=== PATIENT | male | born 1950 | race Caucasian/White ===

== ENCOUNTER 2024-01-17 11:05 | Day surgery (SDC) | payer MEDICARE, BC ==
[2024-01-15 14:26] VITALS: BMI 24.4
[2024-01-17] MEDS: LACTATED RINGERS 1,000 ML IV SCH (11:47)
[2024-01-17 12:03] LABS: Glucose,Whole Blood 55 mg/dL (70-110)
[2024-01-17] MEDS: DEXTROSE 50% SYRINGE 50 ML IVP ONE (12:04)
[2024-01-17 12:20] LABS: Glucose,Whole Blood 116 mg/dL (70-110)
[2024-01-17 12:22] VITALS: TEMP 97.2
[2024-01-17] MEDS ORDERED: PROPOFOL 10 MG/ML 20 ML VIAL IV ONE (12:22)
--- NOTE | 2024-01-17 12:39 | P.PCN ---
Date of Procedure: 01/17/24 Procedure(s) Performed: BRIEF HISTORY: Patient is a 73-year-old pleasant white male scheduled for an elective colonoscopy as a part of screening for colon cancer. PROCEDURE PERFORMED: Colonoscopy with snare polypectomy. PREOPERATIVE DIAGNOSIS: Screening for colon cancer. IV sedation per Anesthesia. PROCEDURE: After informed consent was obtained, the patient, was brought into the endoscopy unit. IV sedation was administered by Anesthesia under continuous monitoring. Digital rectal examination was normal. Initially the Olympus CF-160 flexible video colonoscope was then inserted in the rectum, gradually advanced into the cecum without any difficulty. Careful examination was performed as the scope was gradually being withdrawn. Ileocecal valve and the appendiceal orifice were visualized and appeared normal. Prep was excellent. Mucosa of the cecum, at a 6 mm polyp that was removed by cold snare polypectomy. Rest of the ascending colon, transverse colon, descending colon, sigmoid colon, and rectum appeared normal.rectum there was a 4 mm polyp removed by cold snare polypectomy. Retroflexion was performed in the rectum and no lesions were seen. The patient tolerated the procedure well. IMPRESSION: 6 mm cecal polyp status post cold snare polypectomy 4 mm proximal rectal polyp status post cold snare polypectomy . Rest of the colon appeared normal RECOMMENDATIONS: Findings of this examination were discussed with the patient As well as his family. He was advised to follow with the biopsy results. If the biopsy reveals adenoma he can have a repeat colonoscopy in 5 years..
[2024-01-17 13:08] VITALS: BP 162/91; PULSE 90; RESP 16
[2024-01-17 13:15] LABS: Glucose,Whole Blood 71 mg/dL (70-110)
== END 2024-01-17 13:38 | disposition home or self-care (01) ==
LOC: ORWHC2ENDO 11:05
PROVIDERS: ATTEND Internal Medicine Gastroenterology
DX: Z12.11 Encounter for screening for malignant neoplasm of colon (principal); D12.0 Benign neoplasm of cecum; K62.1 Rectal polyp; E11.9 Type 2 diabetes mellitus without complications; Z85.46 Personal history of malignant neoplasm of prostate; Z79.84 Long term (current) use of oral hypoglycemic drugs; Z79.899 Other long term (current) drug therapy
CPT/HCPCS: 88305; 45385; J2704

== ENCOUNTER 2024-11-01 01:07 | Inpatient (IN) | payer MEDICARE, BC ==
[2024-11-01 01:12] LABS: Glucose,Whole Blood 103 mg/dL (70-110)
--- NOTE | 2024-11-01 01:43 | CT ---
EXAM: CT Head Without Intravenous Contrast CLINICAL HISTORY: ITS.REASON CT Reason: Neuro Deficit, acute, persistent or progressing TECHNIQUE: Axial computed tomography images of the head/brain without intravenous contrast. CTDI is 49.1 mGy and DLP is 1256.4 mGy-cm. This CT exam was performed using one or more of the following dose reduction techniques: automated exposure control, adjustment of the mA and/or kV according to patient size, and/or use of iterative reconstruction technique. COMPARISON: No relevant prior studies available. FINDINGS: Brain: No hemorrhage, herniation, or mass effect. Chronic microvascular ischemic changes. 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 Ventricles: No hydrocephalus. Age related cerebral volume loss. Bones/joints: Unremarkable. Soft tissues: Unremarkable. Sinuses: No air fluid levels. Mastoid air cells: Clear. IMPRESSION: No acute hemorrhage, hydrocephalus, or mass effect.
[2024-11-01 02:12] LABS: Basophils % (A) 1 %; Eosinophils # (A) 0.1 k/uL (0-0.7); Eosinophils % (A) 1 %; HCT 28.7 % (39.0-53.0); HGB 9.7 gm/dL (13.0-17.5); Lymphocytes # (A) 0.9 k/uL (1.0-4.8); Lymphocytes % (A) 19 %; MCHC 33.7 g/dL (31.0-37.0); Macrocytosis Slight; Mean Platelet Volume 8.5; Monocytes # (A) 0.4 k/uL (0-1.0); Monocytes % (A) 9 %; Neutrophils # (A) 3.2 k/uL (1.3-7.7); Neutrophils % (A) 68 %; Platelet Count 185 k/uL (150-450); RBC 2.76 m/uL (4.30-5.90); WBC 4.7 k/uL (3.8-10.6)
[2024-11-01 02:38] LABS: ALT 24 U/L (4-49); African American GFR (CKD) 55 (>60 ml/min/1.73 sqM); Albumin 2.2 g/dL (3.5-5.0); Anion Gap 6 mmol/L; Blood Urea Nitrogen 44 mg/dL (9-20); Carbon Dioxide 25 mmol/L (22-30); Chloride 103 mmol/L (98-107); Glucose 104 mg/dL (74-99); Non-African American GFR(CKD) 48 (>60 ml/min/1.73 sqM); Sodium 134 mmol/L (137-145); Total Bilirubin 0.8 mg/dL (0.2-1.3); Total Protein 6.1 g/dL (6.3-8.2)
[2024-11-01 02:46] LABS: NT-Pro-B-Type Natriuretic Pept 3410 pg/mL
[2024-11-01 02:52] LABS: AST 78 U/L (17-59); Alkaline Phosphatase 167 U/L (38-126); Magnesium 1.8 mg/dL (1.6-2.3); Potassium 4.5 mmol/L (3.5-5.1)
[2024-11-01 03:03] LABS: Amorphous Sediment,Urine Rare /hpf; Appearance,Urine Cloudy (Clear); Bacteria,Urine Moderate /hpf; Bilirubin,Urine Negative (Negative); Blood,Urine Large (Negative); Color,Urine Yellow; Glucose,Urine (UA) Negative (Negative); Hyaline Casts,Urine 48 /lpf (0-2); Ketones,Urine Negative (Negative); Leukocyte Esterase,Urine Moderate (Negative); Mucus,Urine Occasional /hpf; Nitrite,Urine Negative (Negative); Protein,Urine 1+ (Negative); RBC,Urine >182 /hpf (0-5); Specific Gravity,Urine 1.018 (1.001-1.035); Urobilinogen,Urine <2.0 mg/dL (<2.0); WBC,Urine 9 /hpf (0-5)
[2024-11-01 03:08] LABS: INR 1.4 (<1.2); Partial Thromboplastin Time 31.4 sec (22.0-30.0); Prothrombin Time 14.4 sec (10.0-12.5)
--- NOTE | 2024-11-01 03:19 | XR ---
EXAM: XR Chest, 1 View CLINICAL HISTORY: ITS.REASON XR Reason: Weakness TECHNIQUE: Frontal view of the chest. COMPARISON: No relevant prior studies available. IMPRESSION: Moderate vascular congestion
[2024-11-01] MEDS ORDERED: NALOXONE 0.4 MG/ML 1 ML VIAL IV PRN (04:23)
--- NOTE | 2024-11-01 04:23 | ED ---
General Adult HPI - General Chief complaint: Neuro Symptoms/Deficit Stated complaint: Neuro Symptoms Time Seen by Provider: 11/01/24 01:10 Source: EMS Mode of arrival: EMS - History of Present Illness Initial comments: 74-year-old male who presents to the emergency department from [facility]. They called EMS to transport the patient to the hospital as he has had a change in his mental status. Patient appears to be more fatigued with some slurred speech. They state he was his normal self at 8 PM. EMS present and state that they thought that one of the patient's pupils were smaller than the other therefore they were concerned for stroke. Patient does not have any lateralizing weakness. No weakness in the upper extremities. Does have bilateral weakness which is equal in the lower extremities. Patient does not have a history of stroke. Does not take any blood thinners. He denies any headache or visual changes. He does admit to extreme fatigue with poor appetite and states he has not eaten anything in the past couple days. Patient has noticeable swelling to the bilateral upper and lower extremities. He states that this is baseline for him. He denies any fevers. No chest pain or shortness of breath. Patient is alert and oriented x 4 upon arrival. No other alleviating, precipitating or modifying factors - Related Data Home Medications Medication Instructions Recorded Confirmed Amoxic-Pot Clav 500-125 mg 1 tab PO Q12HR 01/15/24 01/17/24 [Augmentin 500-125 mg] Pantoprazole [Protonix] 40 mg PO DAILY 01/15/24 01/17/24 Tamsulosin [Flomax] 0.4 mg PO DAILY 01/15/24 01/17/24 glipiZIDE 10 mg PO BID 01/15/24 01/17/24 lisinopriL 20 mg PO DAILY 01/15/24 01/17/24 sitaGLIPtin [Januvia] 100 mg PO DAILY 01/15/24 01/17/24 traZODone HCL [Desyrel] 50 mg PO HS 01/15/24 01/17/24 Allergies Allergy/AdvReac Type Severity Reaction Status Date / Time No Known Allergies Allergy Verified 01/17/24 11:43 Review of Systems ROS Statement: Those systems with pertinent positive or pertinent negative responses have been documented in the HPI. ROS Other: All systems not noted in ROS Statement are negative. Past Medical History Past Medical History: Cancer, Diabetes Mellitus Additional Past Medical History / Comment(s): prostate cancer History of Any Multi-Drug Resistant Organisms: None Reported Additional Past Surgical History / Comment(s): oral surgery for implant Past Anesthesia/Blood Transfusion Reactions: No Reported Reaction Additional Past Anesthesia/Blood Transfusion Reaction / Comment(s): no blood transfusion Past Psychological History: No Psychological Hx Reported Smoking Status: Never smoker Past Alcohol Use History: None Reported Past Drug Use History: None Reported Course Vital Signs 11/01/24 11/01/24 11/01/24 01:09 02:34 03:05 Pulse Rate 80 76 78 Respiratory 20 16 18 Rate Blood Pressure 89/65 85/51 98/63 O2 Sat by Pulse 94 L 94 L 98 Oximetry Medical Decision Making - Medical Decision Making Was pt. sent in by a medical professional or institution (, PA, HYDROELECTRIC PLANT ELECTRICIAN, urgent care, hospital, or snf...) When possible be specific @ -[No] Did you speak to anyone other than the patient for history (EMS, parent, family, police, friend...)? What history was obtained from this source @ -[No] Did you review nursing and triage notes (agree or disagree)? Why? @ -[I reviewed and agree with nursing and triage notes] Were old charts reviewed (outside hosp., previous admission, EMS record, old EKG, old radiological studies, urgent care reports/EKG's, snf records)? Report findings @ -[No old charts were reviewed] Differential Diagnosis (chest pain, altered mental status, abdominal pain women, abdominal pain men, vaginal bleeding, weakness, fever, dyspnea, syncope, headache, dizziness, GI bleed, back pain, seizure, CVA, palpatations, mental health, musculoskeletal)? @ -[not applicable] EKG interpreted by me (3pts min.). @ -Yes and demonstrates sinus rhythm with a rate of 70. HI interval 224. QRS 77. QTc of 370. No acute ST segment elevations or depressions X-rays interpreted by me (1pt min.). @ -[None done] CT interpreted by me (1pt min.). @ -[None done] U/S interpreted by me (1pt. min.). @ -[None done] What testing was considered but not performed or refused? (CT, X-rays, U/S, labs)? Why? @ -[None] What meds were considered but not given or refused? Why? @ -[None] Did you discuss the management of the patient with other professionals (professionals i.e. , PA, HYDROELECTRIC PLANT ELECTRICIAN, lab, RT, psych nurse, social welfare research worker, corsetier, teacher, admissions officer, residential case manager)? Give summary @ -[No] Was smoking cessation discussed for >3mins.? @ -[No] Was critical care preformed (if so, how long)? @ -[No] Were there social determinants of health that impacted care today? How? (Homelessness, low income, unemployed, alcoholism, drug addiction, transport ation, low edu. Level, literacy, decrease access to med. care, long-term, rehab)? @ -[No] Was there de-escalation of care discussed even if they declined (Discuss DNR or withdrawal of care, Hospice)? DNR status @ -[No] What co-morbidities impacted this encounter? (DM, HTN, Smoking, COPD, CAD, Cancer, CVA, ARF, Chemo, Hep., AIDS, mental health diagnosis, sleep apnea, morbid obesity)? @ -[None] Was patient admitted / discharged? Hospital course, mention meds given and route, prescriptions, significant lab abnormalities, going to OR and other pertinent info. @ -[hospital course] Undiagnosed new problem with uncertain prognosis? @ -[No] Drug Therapy requiring intensive monitoring for toxicity (Heparin, Nitro, Insulin, Cardizem)? @ -[No] Were any procedures done? @ -[No] Diagnosis/symptom? @ -[default] Acute, or Chronic, or Acute on Chronic? @ -[default] Uncomplicated (without systemic symptoms) or Complicated (systemic symptoms)? @ -[default] Side effects of treatment? @ -[No] Exacerbation, Progression, or Severe Exacerbation? @ -[No] Poses a threat to life or bodily function? How? (Chest pain, [place], [place], pneumonia, PE, COPD, DKA, ARF, appy, cholecystitis, CVA, Diverticulitis, Homicidal, Suicidal, threat to staff... and all critical care pts) @ -[No] - Lab Data Result diagrams: 11/01/24 01:18 11/01/24 01:18 Lab Results 11/01/24 11/01/24 11/01/24 Range/Units 01:11 01:18 01:18 WBC 4.7 (3.8-10.6) k/uL RBC 2.76 L (4.30-5.90) m/uL Hgb 9.7 L (13.0-17.5) gm/dL Hct 28.7 L (39.0-53.0) % MCV 104.0 H (80.0-100.0) fL MCH 35.0 (25.0-35.0) pg MCHC 33.7 (31.0-37.0) g/dL RDW 13.0 (11.5-15.5) % Plt Count 185 (150-450) k/uL MPV 8.5 Neutrophils % 68 % Lymphocytes % 19 % Monocytes % 9 % Eosinophils % 1 % Basophils % 1 % Neutrophils # 3.2 (1.3-7.7) k/uL Lymphocytes # 0.9 L (1.0-4.8) k/uL Monocytes # 0.4 (0-1.0) k/uL Eosinophils # 0.1 (0-0.7) k/uL Basophils # 0.0 (0-0.2) k/uL Macrocytosis Slight PT 14.4 H (10.0-12.5) sec INR 1.4 H (<1.2) APTT 31.4 H (22.0-30.0) sec Sodium (137-145) mmol/L Potassium (3.5-5.1) mmol/L Chloride (98-107) mmol/L Carbon Dioxide (22-30) mmol/L Anion Gap mmol/L BUN (9-20) mg/dL Creatinine (0.66-1.25) mg/dL Est GFR (CKD-EPI)AfAm (>60 ml/min/1.73 sqM) Est GFR (CKD-EPI)NonAf (>60 ml/min/1.73 sqM) Glucose (74-99) mg/dL POC Glucose (mg/dL) 103 (70-110) mg/dL POC Glu Block Hand ID Tylor Lambert Plasma Lactic Acid Bo (0.7-2.0) mmol/L Calcium (8.4-10.2) mg/dL Magnesium (1.6-2.3) mg/dL Total Bilirubin (0.2-1.3) mg/dL AST (17-59) U/L ALT (4-49) U/L Alkaline Phosphatase (38-126) U/L Troponin I (0.000-0.034) ng/mL NT-Pro-B Natriuret Pep pg/mL Total Protein (6.3-8.2) g/dL Albumin (3.5-5.0) g/dL Urine Color Urine Appearance (Clear) Urine pH (5.0-8.0) Ur Specific [place] (1.001-1.035) Urine Protein (Negative) Urine Glucose (UA) (Negative) Urine Ketones (Negative) Urine Blood (Negative) Urine Nitrite (Negative) Urine Bilirubin (Negative) Urine Urobilinogen (<2.0) mg/dL Ur Leukocyte Esterase (Negative) Urine RBC (0-5) /hpf Urine WBC (0-5) /hpf Amorphous Sediment (None) /hpf Urine Bacteria (None) /hpf Hyaline Casts (0-2) /lpf Urine Mucus (None) /hpf 11/01/24 11/01/24 11/01/24 Range/Units 01:18 01:18 01:18 WBC (3.8-10.6) k/uL RBC (4.30-5.90) m/uL Hgb (13.0-17.5) gm/dL Hct (39.0-53.0) % MCV (80.0-100.0) fL MCH (25.0-35.0) pg MCHC (31.0-37.0) g/dL RDW (11.5-15.5) % Plt Count (150-450) k/uL MPV Neutrophils % % Lymphocytes % % Monocytes % % Eosinophils % % Basophils % % Neutrophils # (1.3-7.7) k/uL Lymphocytes # (1.0-4.8) k/uL Monocytes # (0-1.0) k/uL Eosinophils # (0-0.7) k/uL Basophils # (0-0.2) k/uL Macrocytosis PT (10.0-12.5) sec INR (<1.2) APTT (22.0-30.0) sec Sodium 134 L (137-145) mmol/L Potassium 4.5 (3.5-5.1) mmol/L Chloride 103 (98-107) mmol/L Carbon Dioxide 25 (22-30) mmol/L Anion Gap 6 mmol/L BUN 44 H (9-20) mg/dL Creatinine 1.43 H (0.66-1.25) mg/dL Est GFR (CKD-EPI)AfAm 55 (>60 ml/min/1.73 sqM) Est GFR (CKD-EPI)NonAf 48 (>60 ml/min/1.73 sqM) Glucose 104 H (74-99) mg/dL POC Glucose (mg/dL) (70-110) mg/dL POC Glu Block Hand ID Plasma Lactic Acid Bo 2.3 H* (0.7-2.0) mmol/L Calcium 8.0 L (8.4-10.2) mg/dL Magnesium 1.8 (1.6-2.3) mg/dL Total Bilirubin 0.8 (0.2-1.3) mg/dL AST 78 H (17-59) U/L ALT 24 (4-49) U/L Alkaline Phosphatase 167 H (38-126) U/L Troponin I 0.086 H* (0.000-0.034) ng/mL NT-Pro-B Natriuret Pep 3410 pg/mL Total Protein 6.1 L (6.3-8.2) g/dL Albumin 2.2 L (3.5-5.0) g/dL Urine Color Urine Appearance (Clear) Urine pH (5.0-8.0) Ur Specific [place] (1.001-1.035) Urine Protein (Negative) Urine Glucose (UA) (Negative) Urine Ketones (Negative) Urine Blood (Negative) Urine Nitrite (Negative) Urine Bilirubin (Negative) Urine Urobilinogen (<2.0) mg/dL Ur Leukocyte Esterase (Negative) Urine RBC (0-5) /hpf Urine WBC (0-5) /hpf Amorphous Sediment (None) /hpf Urine Bacteria (None) /hpf Hyaline Casts (0-2) /lpf Urine Mucus (None) /hpf 11/01/24 Range/Units 01:37 WBC (3.8-10.6) k/uL RBC (4.30-5.90) m/uL Hgb (13.0-17.5) gm/dL Hct (39.0-53.0) % MCV (80.0-100.0) fL MCH (25.0-35.0) pg MCHC (31.0-37.0) g/dL RDW (11.5-15.5) % Plt Count (150-450) k/uL MPV Neutrophils % % Lymphocytes % % Monocytes % % Eosinophils % % Basophils % % Neutrophils # (1.3-7.7) k/uL Lymphocytes # (1.0-4.8) k/uL Monocytes # (0-1.0) k/uL Eosinophils # (0-0.7) k/uL Basophils # (0-0.2) k/uL Macrocytosis PT (10.0-12.5) sec INR (<1.2) APTT (22.0-30.0) sec Sodium (137-145) mmol/L Potassium (3.5-5.1) mmol/L Chloride (98-107) mmol/L Carbon Dioxide (22-30) mmol/L Anion Gap mmol/L BUN (9-20) mg/dL Creatinine (0.66-1.25) mg/dL Est GFR (CKD-EPI)AfAm (>60 ml/min/1.73 sqM) Est GFR (CKD-EPI)NonAf (>60 ml/min/1.73 sqM) Glucose (74-99) mg/dL POC Glucose (mg/dL) (70-110) mg/dL POC Glu Block Hand ID Plasma Lactic Acid Bo (0.7-2.0) mmol/L Calcium (8.4-10.2) mg/dL Magnesium (1.6-2.3) mg/dL Total Bilirubin (0.2-1.3) mg/dL AST (17-59) U/L ALT (4-49) U/L Alkaline Phosphatase (38-126) U/L Troponin I (0.000-0.034) ng/mL NT-Pro-B Natriuret Pep pg/mL Total Protein (6.3-8.2) g/dL Albumin (3.5-5.0) g/dL Urine Color Yellow Urine Appearance Cloudy (Clear) Urine pH 5.0 (5.0-8.0) Ur Specific [place] 1.018 (1.001-1.035) Urine Protein 1+ H (Negative) Urine Glucose (UA) Negative (Negative) Urine Ketones Negative (Negative) Urine Blood Large H (Negative) Urine Nitrite Negative (Negative) Urine Bilirubin Negative (Negative) Urine Urobilinogen <2.0 (<2.0) mg/dL Ur Leukocyte Esterase Moderate H (Negative) Urine RBC >182 H (0-5) /hpf Urine WBC 9 H (0-5) /hpf Amorphous Sediment Rare H (None) /hpf Urine Bacteria Moderate H (None) /hpf Hyaline Casts 48 H (0-2) /lpf Urine Mucus Occasional H (None) /hpf Disposition Clinical Impression: Acute encephalopathy, Anasarca, Abnormal urinalysis Disposition: ADMITTED IP TO THIS [facility] Condition: Stable Is patient prescribed a controlled substance at d/c from ED?: No Referrals: Damian Griffith MD [Primary Care Provider] - 1-2 days Time of Disposition: 04:23 Decision to Admit Reason: Admit from EC Decision Date: 11/01/24 Decision Time: 04:23
[2024-11-01] MEDS: cefTRIAXone IN SWFI 1,000 MG/10 ML SYRINGE IVP STA (04:42)
[2024-11-01] MEDS ORDERED: DEXTROSE 50% SYRINGE 50 ML IVP PRN ×2 (06:06)
[2024-11-01 06:13] LABS: Glucose,Whole Blood 116 mg/dL (70-110)
[2024-11-01] MEDS: INSULIN ASPART (NovoLOG) 100 UNIT/ML VIAL SQ SCH (06:25)
[2024-11-01] MEDS: FUROSEMIDE 10 MG/ML 4 ML VIAL IV STA (06:30)
[2024-11-01] MEDS: ASPIRIN 81 MG PO SCH (09:36)
--- NOTE | 2024-11-01 10:19 | P.CRDCN ---
History of Present Illness History of present illness: HISTORY OF PRESENT ILLNESS: This is a 74-year-old male with a past medical history significant for hypertension, hyperlipidemia, and diabetes. Patient does not follow with a lead android developer. We have been asked to see the patient in consultation for congestive heart failure. Patient examined at the bedside. Patient is somewhat confused at the time of examination. There is no family to provide any additional history. According to ER records he was brought to the hospital from [facility] secondary to strokelike symptoms. The patient currently denies any chest pain or pressure. He denies any shortness of breath. Blood pressures have been soft with a systolic in the [id number]. DIAGNOSTICS: - EKG reveals sinus mechanism with poor R wave progression. Low voltage QRS. No signs of acute ischemia.. - Chest xray moderate vascular congestion - CT of the brain: Negative for acute hemorrhage, hydrocephalus, or mass effect - Laboratory data: WBCs 4.7. Hemoglobin 9.7. Platelet count 185. INR 1.4. Sodium 134. Potassium 4.5. BUN 44. Creatinine 1.43. Troponin 0.086. 0.109. proBNP 3410. - Current home cardiac medications include Lasix 20 mg twice a day, lisinopril 10 mg daily, simvastatin 20 mg at night. - No previous echocardiogram, stress test, or cardiac catheterization available in EMR for review REVIEW OF SYSTEMS: At the time of my exam: CONSTITUTIONAL: Denies fever or chills. HEENT: Denies blurred vision, vision changes, or eye pain. Denies hemoptysis CARDIOVASCULAR: Denies chest pain. Denies orthopnea. Denies PND. Denies palpitations RESPIRATORY: Denies shortness of breath. GASTROINTESTINAL: Denies abdominal pain. Denies nausea or vomiting. HEMATOLOGIC: Denies bleeding disorders. GENITOURINARY: Denies any blood in urine. SKIN: Denies pruitis. Denies rash. PHYSICAL EXAM: VITAL SIGNS: Reviewed. GENERAL: Well-developed in no acute distress. HEENT: Head is normocephalic. Pupils are equal, round. Sclerae anicteric. Mucous membranes of the mouth are moist. Neck supple. No JVD or thyromegaly LUNGS: Respirations even and unlabored. Lungs essentially clear to auscultation bilaterally. HEART: Regular rate and rhythm. S1 and S2 heard. ABDOMEN: Soft. Nondistended. Nontender. EXTREMITIES: Normal range of motion. No clubbing or cyanosis. Peripheral pulses intact. 1+ bilateral lower extremity edema NEUROLOGIC: Awake and alert. ASSESSMENT: Altered mental status Urinary tract infection Borderline hypotension Abnormal troponins, likely type II ID secondary to infectious process Chronic heart failure, type unknown, echo pending Acute kidney injury, baseline unknown Hypertension Hyperlipidemia Diabetes PLAN: An acute coronary event has been ruled out Obtain 2D echo to assess cardiac structure and function Resume home cardiac medications Hold Lasix and Lisinopril due to GIOVANY and hypotension Monitor kidney function Continue to monitor blood pressure Further recommendations pending patient course Nurse practitioner note has been reviewed by physician. Signing provider agrees with the documented findings, assessment, and plan of care documented by BOARD CATCHER as a scribe. Past Medical History Past Medical History: Cancer, Diabetes Mellitus Additional Past Medical History / Comment(s): prostate cancer History of Any Multi-Drug Resistant Organisms: None Reported Additional Past Surgical History / Comment(s): oral surgery for implant Past Anesthesia/Blood Transfusion Reactions: No Reported Reaction Additional Past Anesthesia/Blood Transfusion Reaction / Comment(s): no blood transfusion Past Psychological History: No Psychological Hx Reported Smoking Status: Former smoker Past Alcohol Use History: None Reported Past Drug Use History: None Reported Medications and Allergies Home Medications Medication Instructions Recorded Confirmed Type Pantoprazole [Protonix] 40 mg PO DAILY 01/15/24 11/01/24 History Tamsulosin [Flomax] 0.4 mg PO DAILY 01/15/24 11/01/24 History traZODone HCL [Desyrel] 50 mg PO HS 01/15/24 11/01/24 History Acetaminophen [Tylenol] 650 mg PO Q4H PRN MDD 3gm 11/01/24 11/01/24 History Escitalopram [Lexapro] 10 mg PO DAILY 11/01/24 11/01/24 History Furosemide [Lasix] 20 mg PO BID 11/01/24 11/01/24 History Gabapentin 300 mg PO HS 11/01/24 11/01/24 History Magnesium Glycinate 100mg 200 mg PO BID 11/01/24 11/01/24 History Simvastatin [Zocor] 20 mg PO HS 11/01/24 11/01/24 History lisinopriL [Zestril] 10 mg PO DAILY 11/01/24 11/01/24 History metFORMIN HCL 500 mg PO BID 11/01/24 11/01/24 History Allergies Allergy/AdvReac Type Severity Reaction Status Date / Time No Known Allergies Allergy Verified 01/17/24 11:43 Physical Exam Vitals: Vital Signs Temp Pulse Pulse Resp BP BP Pulse Ox 11/01/24 09:26 97.4 F L 80 18 97/58 95 11/01/24 05:20 98.7 F 82 18 132/89 97 11/01/24 04:45 74 18 104/62 97 11/01/24 03:05 78 18 98/63 98 11/01/24 02:34 76 16 85/51 94 L 11/01/24 01:09 80 20 89/65 94 L Intake and Output 10/31/24 11/01/24 11/01/24 22:59 06:59 14:59 Output Total 750 Balance -750 Output: Urine 750 Uretheral ([place]) 750 Other: Voiding Method Indwelling Catheter Indwelling Catheter Weight 92.533 kg Results 11/01/24 01:18 11/01/24 01:18 Cardiac Enzymes 11/01/24 11/01/24 11/01/24 Range/Units 01:18 01:18 05:59 AST 78 H (17-59) U/L Troponin I 0.086 H* 0.109 H* (0.000-0.034) ng/mL Coagulation 11/01/24 Range/Units 01:18 PT 14.4 H (10.0-12.5) sec APTT 31.4 H (22.0-30.0) sec CBC 11/01/24 Range/Units 01:18 WBC 4.7 (3.8-10.6) k/uL RBC 2.76 L (4.30-5.90) m/uL Hgb 9.7 L (13.0-17.5) gm/dL Hct 28.7 L (39.0-53.0) % Plt Count 185 (150-450) k/uL Comprehensive Metabolic Panel 11/01/24 Range/Units 01:18 Sodium 134 L (137-145) mmol/L Potassium 4.5 (3.5-5.1) mmol/L Chloride 103 (98-107) mmol/L Carbon Dioxide 25 (22-30) mmol/L BUN 44 H (9-20) mg/dL Creatinine 1.43 H (0.66-1.25) mg/dL Glucose 104 H (74-99) mg/dL Calcium 8.0 L (8.4-10.2) mg/dL AST 78 H (17-59) U/L ALT 24 (4-49) U/L Alkaline Phosphatase 167 H (38-126) U/L Total Protein 6.1 L (6.3-8.2) g/dL Albumin 2.2 L (3.5-5.0) g/dL Current Medications Generic Name Dose Route Start Last Admin Trade Name Freq PRN Reason Stop Dose Admin Aspirin 81 mg 11/01/24 09:00 11/01/24 09:36 Aspirin 81 Mg PO 81 mg DAILY MAYA Administration Atorvastatin Calcium 40 mg 11/01/24 21:00 Atorvastatin 40 Mg Tab PO HS MAYA Dextrose/Water 25 ml 11/01/24 06:06 Dextrose 50% Syringe 50 Ml IVP PER PROTOCOL PRN Hypoglycemia Protocol Dextrose/Water 50 ml 11/01/24 06:06 Dextrose 50% Syringe 50 Ml IVP PER PROTOCOL PRN Hypoglycemia Protocol Insulin Aspart 0 unit 11/01/24 07:30 11/01/24 06:25 Insulin Aspart (Novolog) 100 Unit/Ml Vial SQ Not Given ACHS MAYA Protocol Naloxone HCl 0.2 mg 11/01/24 04:23 Naloxone 0.4 Mg/Ml 1 Ml Vial IV Q2M PRN Opioid Reversal Intake and Output 10/31/24 11/01/24 11/01/24 22:59 06:59 14:59 Output Total 750 Balance -750 Output: Urine 750 Uretheral ([place]) 750 Other: Voiding Method Indwelling Catheter Indwelling Catheter Weight 92.533 kg 11/01/24 01:18 11/01/24 01:18
[2024-11-01 11:36] LABS: Glucose,Whole Blood 131 mg/dL (70-110)
[2024-11-01] MEDS ORDERED: ACETAMINOPHEN TAB 325 MG TAB PO PRN (13:45)
--- NOTE | 2024-11-01 14:25 | P.CNPUL ---
History of Present Illness Consult date: 11/01/24 Requesting physician: Jessica Garcia Reason for consult: dyspnea, hypoxemia, other Chief complaint: Mental status changes, shortness of breath. History of present illness: Pulmonary consult dated November 01, 2024. 74-year-old male who is seen today in room 373. We were consulted for shortness of breath. The patient presented to the emergency department, on November 01, at 1:00 in the morning, with neurologic complaints. He came in from one of the local nursing homes. The patient himself is not a particularly good historian and most of the history is obtained from the medical record. In addition to mental status changes, the patient apparently complained of some shortness of breath. He apparently was evaluated for possible CVA as well. Currently, the patient's stable from the pulmonary standpoint. His room air saturations ranged from 95% up to 97%. He appears in no acute distress. History includes prostate cancer, diabetes mellitus, hypertension, and gastroesophageal reflux disease. Laboratory data includes a white count 4.7, hemoglobin 9.7, hematocrit 28.7, and a platelet count of 185,000. PT 14.4, INR 1.4, PTT 31.4, sodium 134, potassium 4.5, chlorides 103, CO2 25, BUN 44, and creatinine 1.43. Glucose is 104. AST of 78. Troponin 0.105. N-terminal proBNP 3410. Procalcitonin level was 0.29. Urine shows 1+ protein, large amount of blood, moderate positive leukocyte esterase, rater than 182 RBCs, 9 WBCs, and moderate urine bacteria. The patient is currently on Rocephin. Brain CT shows nothing acute. Chest x-ray is consistent with fluid overload Review of Systems REVIEW OF SYSTEMS: CONSTITUTIONAL: [Negative.] NEUROLOGIC: Questionable mental status changes, and strokelike symptoms. HEENT: [ Negative.] CARDIAC: [Negative.] PULMONARY: Shortness of breath. GI: [Negative.] : [Negative.] RHEUMATOLOGIC: [ Negative.] IMMUNOLOGIC: [ Negative.] ENDOCRINE: [Negative. ] DERMATOLOGIC: [Negative.] Past Medical History Past Medical History: Cancer, Diabetes Mellitus Additional Past Medical History / Comment(s): prostate cancer History of Any Multi-Drug Resistant Organisms: None Reported Additional Past Surgical History / Comment(s): oral surgery for implant Past Anesthesia/Blood Transfusion Reactions: No Reported Reaction Additional Past Anesthesia/Blood Transfusion Reaction / Comment(s): no blood transfusion Past Psychological History: No Psychological Hx Reported Smoking Status: Former smoker Past Alcohol Use History: None Reported Past Drug Use History: None Reported Medications and Allergies Home Medications Medication Instructions Recorded Confirmed Type Pantoprazole [Protonix] 40 mg PO DAILY 01/15/24 11/01/24 History Tamsulosin [Flomax] 0.4 mg PO DAILY 01/15/24 11/01/24 History traZODone HCL [Desyrel] 50 mg PO HS 01/15/24 11/01/24 History Acetaminophen [Tylenol] 650 mg PO Q4H PRN MDD 3gm 11/01/24 11/01/24 History Escitalopram [Lexapro] 10 mg PO DAILY 11/01/24 11/01/24 History Furosemide [Lasix] 20 mg PO BID 11/01/24 11/01/24 History Gabapentin 300 mg PO HS 11/01/24 11/01/24 History Magnesium Glycinate 100mg 200 mg PO BID 11/01/24 11/01/24 History Simvastatin [Zocor] 20 mg PO HS 11/01/24 11/01/24 History lisinopriL [Zestril] 10 mg PO DAILY 11/01/24 11/01/24 History metFORMIN HCL 500 mg PO BID 11/01/24 11/01/24 History Allergies Allergy/AdvReac Type Severity Reaction Status Date / Time No Known Allergies Allergy Verified 01/17/24 11:43 Physical Exam Osteopathic Statement: *. No significant issues noted on an osteopathic structural exam other than those noted in the History and Physical/Consult. Vitals: Vital Signs Temp Pulse Pulse Resp BP BP Pulse Ox 11/01/24 11:20 96.8 F L 81 16 120/71 95 11/01/24 11:07 97.7 F 79 16 109/70 97 11/01/24 09:26 97.4 F L 80 18 97/58 95 11/01/24 05:20 98.7 F 82 18 132/89 97 11/01/24 04:45 74 18 104/62 97 11/01/24 03:05 78 18 98/63 98 11/01/24 02:34 76 16 85/51 94 L 11/01/24 01:09 80 20 89/65 94 L Intake and Output 10/31/24 11/01/24 11/01/24 22:59 06:59 14:59 Output Total 1075 Balance -1075 Output: Urine 1075 Uretheral (Nunn) 1075 Other: Voiding Method Indwelling Catheter Indwelling Catheter Weight 92.533 kg No acute distress, oriented 3. Very poor historian. No respiratory distress. Currently on room air. HEENT examination is grossly unremarkable. Mucous membranes are moist. No oral lesions. Neck supple. Full range of motion. No adenopathy thyromegaly or neck vein distention. Cardiovascular examination reveals regular rhythm rate. S1-S2 normal. No S3 or S4. No discernible murmur noted. Lungs reveal scattered crackles. Breath sounds equal. No rhonchi. No wheezes. Abdomen soft bowel sounds are heard. No masses or tenderness. Extremities are intact. No cyanosis or clubbing. Mild lower extremity edema. Skin is without rash or lesion. Neurologic examination is brief but nonfocal. Results - Laboratory Findings CBC and BMP: 11/01/24 01:18 11/01/24 01:18 PT/INR, D-dimer PT 14.4 sec (10.0-12.5) H 11/01/24 01:18 INR 1.4 (<1.2) H 11/01/24 01:18 Abnormal lab findings: Abnormal Labs 11/01/24 11/01/24 11/01/24 01:18 01:18 01:18 RBC 2.76 L Hgb 9.7 L Hct 28.7 L MCV 104.0 H Lymphocytes # 0.9 L PT 14.4 H INR 1.4 H APTT 31.4 H Sodium 134 L BUN 44 H Creatinine 1.43 H Glucose 104 H POC Glucose (mg/dL) Plasma Lactic Acid Bo Calcium 8.0 L AST 78 H Alkaline Phosphatase 167 H Troponin I Total Protein 6.1 L Albumin 2.2 L Urine Protein Urine Blood Ur Leukocyte Esterase Urine RBC Urine WBC Amorphous Sediment Urine Bacteria Hyaline Casts Urine Mucus 11/01/24 11/01/24 11/01/24 01:18 01:18 01:37 RBC Hgb Hct MCV Lymphocytes # PT INR APTT Sodium BUN Creatinine Glucose POC Glucose (mg/dL) Plasma Lactic Acid Bo 2.3 H* Calcium AST Alkaline Phosphatase Troponin I 0.086 H* Total Protein Albumin Urine Protein 1+ H Urine Blood Large H Ur Leukocyte Esterase Moderate H Urine RBC >182 H Urine WBC 9 H Amorphous Sediment Rare H Urine Bacteria Moderate H Hyaline Casts 48 H Urine Mucus Occasional H 11/01/24 11/01/24 11/01/24 05:59 06:11 10:02 RBC Hgb Hct MCV Lymphocytes # PT INR APTT Sodium BUN Creatinine Glucose POC Glucose (mg/dL) 116 H Plasma Lactic Acid Bo Calcium AST Alkaline Phosphatase Troponin I 0.109 H* 0.105 H* Total Protein Albumin Urine Protein Urine Blood Ur Leukocyte Esterase Urine RBC Urine WBC Amorphous Sediment Urine Bacteria Hyaline Casts Urine Mucus 11/01/24 11:35 RBC Hgb Hct MCV Lymphocytes # PT INR APTT Sodium BUN Creatinine Glucose POC Glucose (mg/dL) 131 H Plasma Lactic Acid Bo Calcium AST Alkaline Phosphatase Troponin I Total Protein Albumin Urine Protein Urine Blood Ur Leukocyte Esterase Urine RBC Urine WBC Amorphous Sediment Urine Bacteria Hyaline Casts Urine Mucus - Diagnostic Findings Chest x-ray: image reviewed Assessment and Plan Assessment: Shortness of breath, likely secondary to an acute CHF exacerbation. Acute mental status changes, currently being evaluated by the primary service. History of hypertension. History of diabetes mellitus. History of gastroesophageal reflux disease. History of prostate cancer. Plan: Plan dated November 01, 2024. The patient is seen today in room 373. The patient is currently on room air. No evidence of respiratory difficulty or distress. The patient's procalcitonin level was normal at 0.29. The patient may have a urinary tract infection, and that is currently being evaluated by the primary service. Chest x-ray is consistent with CHF. N-terminal proBNP was elevated at 3410. CT scan of the brain was negative. We will continue to follow the patient, make recommendations. No additional recommendations at this time. Labs, x-rays, and all medications have been reviewed. Time with Patient: Greater than 30
[2024-11-01] MEDS: FUROSEMIDE 10 MG/ML 4 ML VIAL IV SCH (14:26)
--- NOTE | 2024-11-01 16:24 | CA ---
Transthoracic Echo Report Name: Mayo Dawn Age: 74 Gender: M : 1950 Exam Date: 11/01/2024 08:54 Exam Location: [facility] Ht (in): 71 Wt (lb): 204 Ordering Physician: Kaylee Doan DO Attending/Referring Phys: [id number], Olimpia Petrography Teacher Rose Bueno, MATT Procedure CPT: Indications: anasarca Cardiac Hx: Technical Quality: Poor, images only obtained from subcostal Contrast 1: Total Dose (mL): Contrast 2: Total Dose (mL): MEASUREMENTS (Male / Female) Normal Values 2D ECHO LV Diastolic Diameter PLAX 3.3 cm 4.2 - 5.9 / 3.9 - 5.3 cm LV Systolic Diameter PLAX 2.0 cm IVS Diastolic Thickness 1.0 cm 0.6 - 1.0 / 0.6 - 0.9 cm LVPW Diastolic Thickness 1.1 cm 0.6 - 1.0 / 0.6 - 0.9 cm LV Relative Wall Thickness 0.6 RV Internal Dim ED PLAX 1.8 cm LA Systolic Diameter LX 3.2 cm 3.0 - 4.0 / 2.7 - 3.8 cm M-MODE Aortic Root Diameter MM 3.6 cm LA Systolic Diameter MM 3.3 cm LA Ao Ratio MM 0.9 AV Cusp Separation MM 1.5 cm DOPPLER AI Peak Velocity 191.7 cm/s AI Peak Gradient 14.7 mmHg AI Pressure Half Time 959.0 ms MV Area PHT 2.7 cm??? Mitral E Point Velocity 84.6 cm/s Mitral A Point Velocity 57.8 cm/s Mitral E to A Ratio 1.5 MV Deceleration Time 278.7 ms TR Peak Velocity 183.8 cm/s TR Peak Gradient 13.5 mmHg Right Ventricular Systolic Press 18.5 mmHg FINDINGS Left Ventricle Left ventricular ejection fraction is estimated at 55-60 %. Normal left ventricular systolic function with no obvious regional wall motion abnormalities. Left ventricular cavity size normal. Left ventricular wall thickness normal. Right Ventricle Normal right ventricular size and function. Right ventricular systolic pressure within normal limits. Right Atrium Normal right atrial size. Left Atrium Normal left atrial size. Mitral Valve Structurally normal mitral valve. Trace mitral regurgitation. No mitral stenosis. Aortic Valve Trileaflet aortic valve. Diffuse thickening (sclerosis) of the aortic valve cusps without reduced excursion. Trace aortic regurgitation. Tricuspid Valve Structurally normal tricuspid valve. Trace tricuspid regurgitation. No tricuspid stenosis. Pulmonic Valve Structurally normal pulmonic valve. No pulmonic regurgitation. Trace pulmonic regurgitation. Pericardium Ascites. Pericardium not well seen due to ascites. Aorta Normal size aortic root and proximal ascending aorta. CONCLUSIONS Left ventricular ejection fraction 55-60% RVSP 18 Trace aortic regurgitation Trace tricuspid regurgitation Previewed by: Dr. Daljit Link DO (Electronically Signed) Final Date: 01 November 2024 16:23
[2024-11-01 16:29] LABS: Glucose,Whole Blood 154 mg/dL (70-110)
[2024-11-01 20:30] LABS: Glucose,Whole Blood 266 mg/dL (70-110)
[2024-11-01] MEDS ORDERED: NON FORMULARY DRUG (Simvastatin 20 MG Tab) PO SCH (21:00)
[2024-11-01] MEDS: ATORVASTATIN 40 MG TAB PO SCH (21:22)
[2024-11-01] MEDS: GABAPENTIN 300 MG CAP PO SCH (21:22)
[2024-11-01] MEDS: traZODone HCL 50 MG TAB PO SCH (21:22)
--- NOTE | 2024-11-01 23:48 | HP ---
HISTORY AND PHYSICAL CHIEF COMPLAINTS: Change in mental status. HISTORY OF PRESENT ILLNESS: This is a 74-year-old gentleman who was in the ECF, was complaining of some change in mental status. The patient was sent to [facility] and was found to have CHF as well as elevated troponin and some features of abnormal urine. There is no history of any fever, rigors, chills at this time. A CT brain did not show any acute abnormality and chest x-ray showed moderate vascular congestion and CHF. There is no history of fever, rigors or chills. PAST MEDICAL HISTORY: Reviewed include diabetes mellitus and prostate cancer. Rest of the history and rest of the chart is also reviewed. MEDICATIONS ARE: Desyrel. Dose and rest of medications reviewed. ALLERGIES: None. FAMILY HISTORY: No history of heart disease or strokes in the family. SOCIAL HISTORY: Previous history of smoking. REVIEW OF SYSTEM: Fourteen-point review of systems is negative except as mentioned earlier. PHYSICAL EXAMINATION: VITAL SIGNS: Pulse is 79, blood pressure 100/70, and respirations 16. HEENT: Conjunctivae normal. NECK: No JVD. CARDIOVASCULAR: S1, S2. RESPIRATIONS: Breath sounds diminished at the bases. A few scattered rhonchi. ABDOMEN: Soft. No mass palpable. LEGS: Minimal edema. NERVOUS SYSTEM: Diffusely weak. LABORATORY DATA: WBC 4.6, hemoglobin 9.7. Other labs are noted. ASSESSMENT: 1. Congestive heart failure with acute exacerbation with ejection fraction unknown. 2. Troponin elevated up to . Rule out acute [id number]-elevation myocardial infarction. 3. Change in mental status, rule out acute stroke. 4. Diabetes mellitus, type 2. 5. Prostate disorder. 6. Multiple medical issues. RECOMMENDATION: This 74-year-old gentleman, who presented with multiple complex medical issues. We will monitor the patient closely. Continue the current management and continue symptomatic treatment. We will initiate IV diuretics and neurology consultation. Infectious Disease consultation to rule out the possibility of any UTI, otherwise guarded prognosis. Resume home medications once they are confirmed. Guarded prognosis. Further recommendations to follow. See orders for further details. Cardiology has been consulted. A 2D echo with Doppler. MMODL / IJN: [id number] / MTDD
[2024-11-02 06:23] LABS: Basophils % (A) 1 %; Eosinophils # (A) 0.1 k/uL (0-0.7); Eosinophils % (A) 2 %; HCT 29.8 % (39.0-53.0); HGB 9.9 gm/dL (13.0-17.5); Lymphocytes # (A) 0.8 k/uL (1.0-4.8); Lymphocytes % (A) 21 %; MCH 34.3 pg (25.0-35.0); MCHC 33.3 g/dL (31.0-37.0); MCV 102.9 fL (80.0-100.0); Macrocytosis Slight; Mean Platelet Volume 8.2; Monocytes # (A) 0.3 k/uL (0-1.0); Monocytes % (A) 9 %; Neutrophils # (A) 2.5 k/uL (1.3-7.7); Neutrophils % (A) 65 %; Platelet Count 177 k/uL (150-450); RDW 12.9 % (11.5-15.5); WBC 3.9 k/uL (3.8-10.6)
[2024-11-02 07:16] LABS: African American GFR (CKD) 55 (>60 ml/min/1.73 sqM); Anion Gap 6 mmol/L; Blood Urea Nitrogen 44 mg/dL (9-20); Calcium 8.1 mg/dL (8.4-10.2); Carbon Dioxide 25 mmol/L (22-30); Chloride 103 mmol/L (98-107); Glucose 91 mg/dL (74-99); Non-African American GFR(CKD) 47 (>60 ml/min/1.73 sqM); Sodium 134 mmol/L (137-145)
--- NOTE | 2024-11-02 07:19 | P.CONS ---
History of Present Illness - Reason for Consult Consult date: 11/01/24 UTI Requesting physician: Jina Dasilva - Chief Complaint Mental status changes and weakness x few days - History of Present Illness Patient is a 74-year-old male with a past medical history significant for prostate cancer diabetes mellitus, presented to the hospital from local alf concerning for mental status changes patient appears to be more fatigued with slurred speech but no focal weakness patient denies having any headache main symptom remains to be fatigued with poor appetite and has not eaten any for the last few days patient denies having any headache or URI symptoms no chest pain shortness of breath or cough no abdominal pain and did not have any diarrhea did have some difficulty urination with mild burning but no hematuria on presentation to the hospital he did have a white count of 4.7 creatinine was 1.43 troponins are elevated liver enzymes AST mildly elevated the patient have significantly positive UA with large leukocyte esterase 9 WBC did have a chest x-ray moderate vascular congestion patient has been admitted to the hospital he was given a dose of ceftriaxone concerning for UTI infectious disease was consulted for further management of antibiotic therapy Review of Systems Positive point and negatives has been mentioned in the HPI, complete review of systems was performed and all other systems are negative Past Medical History Past Medical History: Cancer, Diabetes Mellitus Additional Past Medical History / Comment(s): prostate cancer History of Any Multi-Drug Resistant Organisms: None Reported Additional Past Surgical History / Comment(s): oral surgery for implant Past Anesthesia/Blood Transfusion Reactions: No Reported Reaction Additional Past Anesthesia/Blood Transfusion Reaction / Comm: no blood transfusion Past Psychological History: No Psychological Hx Reported Smoking Status: Former smoker Past Alcohol Use History: None Reported Past Drug Use History: None Reported Medications and Allergies Home Medications Medication Instructions Recorded Confirmed Type Pantoprazole [Protonix] 40 mg PO DAILY 01/15/24 11/01/24 History Tamsulosin [Flomax] 0.4 mg PO DAILY 01/15/24 11/01/24 History traZODone HCL [Desyrel] 50 mg PO HS 01/15/24 11/01/24 History Acetaminophen [Tylenol] 650 mg PO Q4H PRN MDD 3gm 11/01/24 11/01/24 History Escitalopram [Lexapro] 10 mg PO DAILY 11/01/24 11/01/24 History Furosemide [Lasix] 20 mg PO BID 11/01/24 11/01/24 History Gabapentin 300 mg PO HS 11/01/24 11/01/24 History Magnesium Glycinate 100mg 200 mg PO BID 11/01/24 11/01/24 History Simvastatin [Zocor] 20 mg PO HS 11/01/24 11/01/24 History lisinopriL [Zestril] 10 mg PO DAILY 11/01/24 11/01/24 History metFORMIN HCL 500 mg PO BID 11/01/24 11/01/24 History Allergies Allergy/AdvReac Type Severity Reaction Status Date / Time No Known Allergies Allergy Verified 01/17/24 11:43 Physical Exam Vitals: Vital Signs Temp Pulse Pulse Resp BP BP Pulse Ox 11/01/24 11:20 96.8 F L 81 16 120/71 95 11/01/24 11:07 97.7 F 79 16 109/70 97 11/01/24 09:26 97.4 F L 80 18 97/58 95 11/01/24 05:20 98.7 F 82 18 132/89 97 11/01/24 04:45 74 18 104/62 97 11/01/24 03:05 78 18 98/63 98 11/01/24 02:34 76 16 85/51 94 L 11/01/24 01:09 80 20 89/65 94 L Intake and Output 10/31/24 11/01/24 11/01/24 22:59 06:59 14:59 Output Total 1075 Balance -1075 Output: Urine 1075 Uretheral (Nunn) 1075 Other: Voiding Method Indwelling Catheter Indwelling Catheter Weight 92.533 kg GENERAL DESCRIPTION: Elderly male lying in bed, no distress. No tachypnea or accessory muscle of respiration use. HEENT: Shows Pallor , no scleral icterus. Oral mucous membrane is dry. NECK: Trachea central, no thyromegaly. LUNGS: Unlabored breathing. Clear to auscultation anteriorly. No wheeze or crackle. HEART: S1, S2, regular rate and rhythm. No loud murmur ABDOMEN: Soft, no tenderness , guarding or rigidity, no organomegaly EXTREMITIES: No edema of feet. SKIN: No rash, no masses palpable. NEUROLOGICAL: The patient is awake, alert, oriented x3, mood and affect normal. Results CBC & Chem 7: 11/02/24 05:46 11/02/24 05:46 Labs: Abnormal Lab Results - Last 24 Hours (Table) 11/01/24 11/01/24 11/01/24 Range/Units 01:18 01:18 01:18 RBC 2.76 L (4.30-5.90) m/uL Hgb 9.7 L (13.0-17.5) gm/dL Hct 28.7 L (39.0-53.0) % MCV 104.0 H (80.0-100.0) fL Lymphocytes # 0.9 L (1.0-4.8) k/uL PT 14.4 H (10.0-12.5) sec INR 1.4 H (<1.2) APTT 31.4 H (22.0-30.0) sec Sodium 134 L (137-145) mmol/L BUN 44 H (9-20) mg/dL Creatinine 1.43 H (0.66-1.25) mg/dL Glucose 104 H (74-99) mg/dL POC Glucose (mg/dL) (70-110) mg/dL Plasma Lactic Acid Bo (0.7-2.0) mmol/L Calcium 8.0 L (8.4-10.2) mg/dL AST 78 H (17-59) U/L Alkaline Phosphatase 167 H (38-126) U/L Troponin I (0.000-0.034) ng/mL Total Protein 6.1 L (6.3-8.2) g/dL Albumin 2.2 L (3.5-5.0) g/dL Urine Protein (Negative) Urine Blood (Negative) Ur Leukocyte Esterase (Negative) Urine RBC (0-5) /hpf Urine WBC (0-5) /hpf Amorphous Sediment (None) /hpf Urine Bacteria (None) /hpf Hyaline Casts (0-2) /lpf Urine Mucus (None) /hpf 11/01/24 11/01/24 11/01/24 Range/Units 01:18 01:18 01:37 RBC (4.30-5.90) m/uL Hgb (13.0-17.5) gm/dL Hct (39.0-53.0) % MCV (80.0-100.0) fL Lymphocytes # (1.0-4.8) k/uL PT (10.0-12.5) sec INR (<1.2) APTT (22.0-30.0) sec Sodium (137-145) mmol/L BUN (9-20) mg/dL Creatinine (0.66-1.25) mg/dL Glucose (74-99) mg/dL POC Glucose (mg/dL) (70-110) mg/dL Plasma Lactic Acid Bo 2.3 H* (0.7-2.0) mmol/L Calcium (8.4-10.2) mg/dL AST (17-59) U/L Alkaline Phosphatase (38-126) U/L Troponin I 0.086 H* (0.000-0.034) ng/mL Total Protein (6.3-8.2) g/dL Albumin (3.5-5.0) g/dL Urine Protein 1+ H (Negative) Urine Blood Large H (Negative) Ur Leukocyte Esterase Moderate H (Negative) Urine RBC >182 H (0-5) /hpf Urine WBC 9 H (0-5) /hpf Amorphous Sediment Rare H (None) /hpf Urine Bacteria Moderate H (None) /hpf Hyaline Casts 48 H (0-2) /lpf Urine Mucus Occasional H (None) /hpf 11/01/24 11/01/24 11/01/24 Range/Units 05:59 06:11 10:02 RBC (4.30-5.90) m/uL Hgb (13.0-17.5) gm/dL Hct (39.0-53.0) % MCV (80.0-100.0) fL Lymphocytes # (1.0-4.8) k/uL PT (10.0-12.5) sec INR (<1.2) APTT (22.0-30.0) sec Sodium (137-145) mmol/L BUN (9-20) mg/dL Creatinine (0.66-1.25) mg/dL Glucose (74-99) mg/dL POC Glucose (mg/dL) 116 H (70-110) mg/dL Plasma Lactic Acid Bo (0.7-2.0) mmol/L Calcium (8.4-10.2) mg/dL AST (17-59) U/L Alkaline Phosphatase (38-126) U/L Troponin I 0.109 H* 0.105 H* (0.000-0.034) ng/mL Total Protein (6.3-8.2) g/dL Albumin (3.5-5.0) g/dL Urine Protein (Negative) Urine Blood (Negative) Ur Leukocyte Esterase (Negative) Urine RBC (0-5) /hpf Urine WBC (0-5) /hpf Amorphous Sediment (None) /hpf Urine Bacteria (None) /hpf Hyaline Casts (0-2) /lpf Urine Mucus (None) /hpf 11/01/24 Range/Units 11:35 RBC (4.30-5.90) m/uL Hgb (13.0-17.5) gm/dL Hct (39.0-53.0) % MCV (80.0-100.0) fL Lymphocytes # (1.0-4.8) k/uL PT (10.0-12.5) sec INR (<1.2) APTT (22.0-30.0) sec Sodium (137-145) mmol/L BUN (9-20) mg/dL Creatinine (0.66-1.25) mg/dL Glucose (74-99) mg/dL POC Glucose (mg/dL) 131 H (70-110) mg/dL Plasma Lactic Acid Bo (0.7-2.0) mmol/L Calcium (8.4-10.2) mg/dL AST (17-59) U/L Alkaline Phosphatase (38-126) U/L Troponin I (0.000-0.034) ng/mL Total Protein (6.3-8.2) g/dL Albumin (3.5-5.0) g/dL Urine Protein (Negative) Urine Blood (Negative) Ur Leukocyte Esterase (Negative) Urine RBC (0-5) /hpf Urine WBC (0-5) /hpf Amorphous Sediment (None) /hpf Urine Bacteria (None) /hpf Hyaline Casts (0-2) /lpf Urine Mucus (None) /hpf Assessment and Plan (1) UTI (urinary tract infection) Current Visit: Yes Status: Acute Code(s): N39.0 - URINARY TRACT INFECTION, SITE NOT SPECIFIED SNOMED Code(s): 64396377 Plan: 1patient presented to hospital with mental status changes generalized weakness decreased appetite difficulty urination did have some suprapubic discomfort positive UA concerning for symptomatic UTI likely from to the gram-negative pathogen 2-patient to be treated with Rocephin 1 g daily while waiting for the culture to finalize We will follow on clinical condition and cultures to further adjust medication if needed Thank you for this consultation we will follow the patient along with you Dictation was produced using [employer] dictation software. please excuse any grammatical, word or spelling errors. Time with Patient: Greater than 30
[2024-11-02 07:44] LABS: Glucose,Whole Blood 143 mg/dL (70-110)
[2024-11-02] MEDS: PANTOPRAZOLE 40 MG TABLET PO SCH (07:52)
[2024-11-02] MEDS: TAMSULOSIN 0.4 MG CAP.ER.24H PO SCH (07:52)
[2024-11-02] MEDS: ESCITALOPRAM 10 MG TAB PO SCH (07:52)
--- NOTE | 2024-11-02 11:11 | P.PN ---
Subjective HISTORY OF PRESENT ILLNESS: This is a 74-year-old male with a past medical history significant for hypertension, hyperlipidemia, and diabetes. 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 We have been asked to see the patient in consultation for congestive heart failure. Patient examined at the bedside. Patient is somewhat confused at the time of examination. There is no family to provide any additional history. According to ER records he was brought to the hospital from [facility] secondary to strokelike symptoms. The patient currently denies any chest pain or pressure. He denies any shortness of breath. Blood pressures have been soft with a systolic in the [id number]. DIAGNOSTICS: - EKG reveals sinus mechanism with poor R wave progression. Low voltage QRS. No signs of acute ischemia.. - Chest xray moderate vascular congestion - CT of the brain: Negative for acute hemorrhage, hydrocephalus, or mass effect - Laboratory data: WBCs 4.7. Hemoglobin 9.7. Platelet count 185. INR 1.4. Sodium 134. Potassium 4.5. BUN 44. Creatinine 1.43. Troponin 0.086. 0.109. proBNP 3410. - Current home cardiac medications include Lasix 20 mg twice a day, lisinopril 10 mg daily, simvastatin 20 mg at night. - No previous echocardiogram, stress test, or cardiac catheterization available in EMR for review 11/02/2024 Patient examined this morning the bedside. Patient currently denies chest pain or pressure. He denies shortness of breath. Patient was started on IV Lasix yesterday per primary medicine. Echocardiogram completed revealing ejection fraction 55 to 60%, trace aortic regurgitation, trace mitral regurgitation, and trace tricuspid regurgitation. PHYSICAL EXAM: VITAL SIGNS: Reviewed. GENERAL: Well-developed in no acute distress. HEENT: Head is normocephalic. Pupils are equal, round. Sclerae anicteric. Mucous membranes of the mouth are moist. Neck supple. No JVD or thyromegaly LUNGS: Respirations even and unlabored. Lungs essentially clear to auscultation bilaterally. HEART: Regular rate and rhythm. S1 and S2 heard. ABDOMEN: Soft. Nondistended. Nontender. EXTREMITIES: Normal range of motion. No clubbing or cyanosis. Peripheral pulses intact. Bilateral lower extremity edema NEUROLOGIC: Awake and alert. ASSESSMENT: Altered mental status Urinary tract infection Borderline hypotension Abnormal troponins, likely type II VT secondary to infectious process Acute on chronic heart failure with preserved EF Acute kidney injury, baseline unknown Hypertension Hyperlipidemia Diabetes PLAN: Continue current cardiac medications Continue IV Lasix 40 mg every 12 hours Daily weights, accurate intake and output, and monitoring of kidney function Continue to hold lisinopril Further recommendations pending patient course Nurse practitioner note has been reviewed by physician. Signing provider agrees with the documented findings, assessment, and plan of care documented by OPERATER as a scribe. Objective - Vital Signs Vital signs: Vital Signs Temp 97.9 F 11/02/24 07:39 Pulse 91 11/02/24 07:40 Resp 16 11/02/24 07:39 BP 113/72 11/02/24 07:39 Pulse Ox 94 L 11/02/24 07:39 FiO2 Intake & Output 11/01/24 11/02/24 11/02/24 18:59 06:59 18:59 Intake Total 555 10 360 Output Total 1435 850 Balance -880 -840 360 Weight 94.5 kg Intake: IV 15 10 Invasive Line 1 15 10 Oral 540 360 Output: Urine 1435 850 Uretheral (Nunn) 1435 Other: Voiding Method Indwelling Catheter Indwelling Catheter Indwelling Catheter - Labs CBC & Chem 7: 11/02/24 05:46 11/02/24 05:46 Labs: Abnormal Lab Results - Last 24 Hours (Table) 11/01/24 11/01/24 11/01/24 Range/Units 11:35 16:27 20:28 RBC (4.30-5.90) m/uL Hgb (13.0-17.5) gm/dL Hct (39.0-53.0) % MCV (80.0-100.0) fL Lymphocytes # (1.0-4.8) k/uL Sodium (137-145) mmol/L BUN (9-20) mg/dL Creatinine (0.66-1.25) mg/dL POC Glucose (mg/dL) 131 H 154 H 266 H (70-110) mg/dL Calcium (8.4-10.2) mg/dL 11/02/24 11/02/24 11/02/24 Range/Units 05:46 05:46 05:57 RBC 2.90 L (4.30-5.90) m/uL Hgb 9.9 L (13.0-17.5) gm/dL Hct 29.8 L (39.0-53.0) % MCV 102.9 H (80.0-100.0) fL Lymphocytes # 0.8 L (1.0-4.8) k/uL Sodium 134 L (137-145) mmol/L BUN 44 H (9-20) mg/dL Creatinine 1.44 H (0.66-1.25) mg/dL POC Glucose (mg/dL) 143 H (70-110) mg/dL Calcium 8.1 L (8.4-10.2) mg/dL
[2024-11-02 11:33] LABS: Glucose,Whole Blood 148 mg/dL (70-110)
--- NOTE | 2024-11-02 11:48 | US ---
EXAMINATION TYPE: US carotid duplex BILAT DATE OF EXAM: 11/02/2024 COMPARISON: NONE CLINICAL INDICATION: Male, 74 years old with history of AMS, old cva, r/o stenosis; Additional History: R47.0- Aphasia and/or Dsyphasia TECHNIQUE: Grayscale, color Doppler and spectral Doppler evaluation of the bilateral carotid systems and vertebral arteries. Indirect Doppler criteria was utilized. FINDINGS: EXAM MEASUREMENTS: RIGHT: Peak Systolic Velocity (PSV) cm/sec ----- Right CCA: 72 ----- Right ICA: 75 ----- Right ECA: 87 ICA/CCA ratio: 1.0 RIGHT: End Diastole cm/sec ----- Right CCA: 15 ----- Right ICA: 23 ----- Right ECA: 11 LEFT: Peak Systolic Velocity (PSV) cm/sec ----- Left CCA: 71 ----- Left ICA: 70 ----- Left ECA: 88 ICA/CCA ratio: 1.0 LEFT: End Diastole cm/sec ----- Left CCA: 17 ----- Left ICA: 16 ----- Left ECA: 16 VERTEBRALS (direction of flow): Right Vertebral: Antegrade Left Vertebral: Antegrade Rhythm: Arrhythmia; Images 14, and 21 TALENT MANAGER NOTES: Difficult exam - patient AMS and unable to stay awake for duration of exam Intimal thickening and carotid plaque seen throughout bilateral CCAs extending into ICAs. No elevated veloci ties seen. Color Doppler imaging shows patency with blood flow throughout the carotid artery. Spectral waveforms are within normal limits. IMPRESSION: 1. Moderate scattered calcified plaque in the common carotid arteries and carotid bifurcations but no significant stenosis based on color and grayscale imaging. 2. No hemodynamically significant stenosis based on peak systolic velocities and ratios. Criteria for Assigning % of Stenosis / Diameter reduction (Estimation based on the indirect measurements of the internal carotid artery velocities (ICA PSV). 1. Normal (no stenosis)=ICA PSV < 125 cm/s: ratio < 2.0: ICA EDV<40 cm/s. 2. Less than 50% stenosis=ICA PSV < 125 cm/s: ratio < 2.0: ICA EDV<40 cm/s. 3. 50 to 69% stenosis=ICA PSV of 125 to 230 cm/s: ration 2.0 ? 4.0: ICA EDV 40-100 cm/s. 4. Greater than 70% stenosis to near occlusion= ICA PSV > 230 cm/s: ratio > 4.0: ICA EDV > 100 cm/s. 5. Near occlusion= ICA PSV velocities may be low or undetectable: variable ratio and ICA EDV. 6. Total occlusion=unable to detect flow. [facility], Workstation: [id number] 11/02/2024 11:46 AM
--- NOTE | 2024-11-02 12:04 | P.PN ---
Subjective Progress Note Date: 11/02/24 Principal diagnosis: Shortness of breath. Pulmonary consult dated November 01, 2024. 74-year-old male who is seen today in room 373. We were consulted for shortness of breath. The patient presented to the emergency department, on November 01, at 1:00 in the morning, with neurologic complaints. He came in from one of the local nursing homes. The patient himself is not a particularly good historian and most of the history is obtained from the medical record. In addition to mental status changes, the patient apparently complained of some shortness of breath. He apparently was evaluated for possible CVA as well. Currently, the patient's stable from the pulmonary standpoint. His room air saturations ranged from 95% up to 97%. He appears in no acute distress. History includes prostate cancer, diabetes mellitus, hypertension, and gastroesophageal reflux disease. L aboratory data includes a white count 4.7, hemoglobin 9.7, hematocrit 28.7, and a platelet count of 185,000. PT 14.4, INR 1.4, PTT 31.4, sodium 134, potassium 4.5, chlorides 103, CO2 25, BUN 44, and creatinine 1.43. Glucose is 104. AST of 78. Troponin 0.105. N-terminal proBNP 3410. Procalcitonin level was 0.29. Urine shows 1+ protein, large amount of blood, moderate positive leukocyte cheyanne ase, rater than 182 RBCs, 9 WBCs, and moderate urine bacteria. The patient is currently on Rocephin. Brain CT shows nothing acute. Chest x-ray is consistent with fluid overload Progress note dated November 02, 2024. 74-year-old male seen in consultation yesterday. He is seen again today in room 373. He is getting saline at 20 cc an hour. He is not requiring any supplemental oxygen. He is laying nearly flat in bed, without any shortness of breath or difficulty breathing. He is awake and alert. Not a particularly good historian. Current labs include a white count of 3.9, hemoglobin 9.9, hematocrit 29.8, platelet count 177,000. Sodium 134, potassium 4, chlorides 103, CO2 25, BUN 44, and creatinine 1.44. Glucose is 148. Calcium is 8.1. Objective - Vital Signs Vital signs: Vital Signs Temp 97.4 F L 11/02/24 11:33 Pulse 81 11/02/24 11:33 Resp 16 11/02/24 11:33 BP 100/64 11/02/24 11:33 Pulse Ox 95 11/02/24 11:33 FiO2 Intake & Output 11/01/24 11/02/24 11/02/24 18:59 06:59 18:59 Intake Total 555 10 360 Output Total 1435 850 450 Balance -880 -840 -90 Weight 94.5 kg 95 kg Intake: IV 15 10 Invasive Line 1 15 10 Oral 540 360 Output: Urine 1435 850 450 Uretheral (Nunn) 1435 450 Other: Voiding Method Indwelling Catheter Indwelling Catheter Indwelling Catheter - Exam No acute distress, oriented 3. Very poor historian. No respiratory distress. Currently on room air. HEENT examination is grossly unremarkable. Mucous membranes are moist. No oral lesions. Neck supple. Full range of motion. No adenopathy thyromegaly or neck vein distention. Cardiovascular examination reveals regular rhythm rate. S1-S2 normal. No S3 or S4. No discernible murmur noted. Lungs reveal scattered crackles. Breath sounds equal. No rhonchi. No wheezes. Abdomen soft bowel sounds are heard. No masses or tenderness. Extremities are intact. No cyanosis or clubbing. Mild lower extremity edema. Skin is without rash or lesion. Neurologic examination is brief but nonfocal. - Labs CBC & Chem 7: 11/02/24 05:46 11/02/24 05:46 Labs: Abnormal Lab Results - Last 24 Hours (Table) 11/01/24 11/01/24 11/02/24 Range/Units 16:27 20:28 05:46 RBC 2.90 L (4.30-5.90) m/uL Hgb 9.9 L (13.0-17.5) gm/dL Hct 29.8 L (39.0-53.0) % MCV 102.9 H (80.0-100.0) fL Lymphocytes # 0.8 L (1.0-4.8) k/uL Sodium (137-145) mmol/L BUN (9-20) mg/dL Creatinine (0.66-1.25) mg/dL POC Glucose (mg/dL) 154 H 266 H (70-110) mg/dL Calcium (8.4-10.2) mg/dL 11/02/24 11/02/24 11/02/24 Range/Units 05:46 05:57 11:32 RBC (4.30-5.90) m/uL Hgb (13.0-17.5) gm/dL Hct (39.0-53.0) % MCV (80.0-100.0) fL Lymphocytes # (1.0-4.8) k/uL Sodium 134 L (137-145) mmol/L BUN 44 H (9-20) mg/dL Creatinine 1.44 H (0.66-1.25) mg/dL POC Glucose (mg/dL) 143 H 148 H (70-110) mg/dL Calcium 8.1 L (8.4-10.2) mg/dL Assessment and Plan Assessment: Shortness of breath, likely secondary to an acute CHF exacerbation. Acute mental status changes, currently being evaluated by the primary service. History of hypertension. History of diabetes mellitus. History of gastroesophageal reflux disease. History of prostate cancer. Plan: Plan dated November 01, 2024. The patient is seen today in room 373. The patient is currently on room air. No evidence of respiratory difficulty or distress. The patient's procalcitonin level was normal at 0.29. The patient may have a urinary tract infection, and that is currently being evaluated by the primary service. Chest x-ray is consistent with CHF. N-terminal proBNP was elevated at 3410. CT scan of the brain was negative. We will continue to follow the patient, make recommendations. No additional recommendations at this time. Labs, x-rays, and all medications have been reviewed. Plan dated November 02, 2024. The patient is seen today in room 373. He remains comfortable. He is lying flat in bed. No respiratory distress or difficulty. He can speak in full sentences. Labs, x-rays, and all medications are reviewed. The patient's N- terminal proBNP was elevated. We will continue to follow make recommendations along the way. Prognosis is guarded. Cultures are thus far negative. Procalcitonin level was normal at 0.29. Time with Patient: Less than 30
[2024-11-02 16:13] LABS: Glucose,Whole Blood 153 mg/dL (70-110)
[2024-11-02 20:11] LABS: Glucose,Whole Blood 164 mg/dL (70-110)
--- NOTE | 2024-11-02 22:43 | P.CNNES ---
History of Present Illness Consult date: 11/02/24 Requesting physician: Jessica Garcia Reason for Consult: tia?? History of Present Illness: Patient is a 74-year-old right-handed male came to the hospital by ambulance yesterday at 1:07 AM for possible TIA. Patient states that he came to the hospital because he was feeling very weak, couldn't walk, couldn't do anything. He states "they thought I was having a stroke". Patient states that he lives [address], who cooks and drives for him. He is not able to tell details about his symptoms. As per EMS flow sheet, when they arrived, patient was complaining of hypotension. Staff stated patient's blood pressure has been trending downwards since 8 PM tonight. Upon EMS arrival, patient was difficult to arouse. Patient presented with new onset of slurred speech, right-sided weakness in the upper extremity and a dilated left pupil. Patient's right pupil was constricted and fixed. Patient could not follow any movements with his eyes. Last known well was 8 PM. Patient was alert and oriented 4 with GCS of 15. Patient denied any pain, difficulty breathing lightheadedness or dizziness or weakness, not on any blood thinners. Patient was following commands but was slow to respond. EKG showed atrial fibrillation. An initial FAST ED score was 2. A repeat FAST ED score was 1. Patient's vitals at the scene was blood pressure 106/64, pulse rate 80, respiration 20. Blood glucose 125. Repeat blood pressure 82/48 in the 92/28. Vital signs on arrival blood pressure 89/65, then 85/51, pulse rate 80. Temperature 98.7. Patient has been afebrile. Blood test showed WBC 4.7 hemoglobin 9.7 with elevated MCV 104.0. Platelets are normal. INR 1.4. Sodium 134 normal potassium. BUN 44 creatinine 1.43. Lactate 2.3. AST 78, ALT 24. Troponin 0.086. UA shows moderate amount of leukocyte Estrace and 9 WBC and m oderate bacteria. Hemoglobin A1c 5.9. CT head showed no acute intracranial process. I personally reviewed CT head, agree with the findings. Evidence of old ischemia involving the right posterior temporal region. Chest x-ray showed moderate vascular congestion. EKG showed sinus rhythm with first-degree AV block. 2-D echo showed LVEF 55-60%. No obvious regional wall motion abnormalities. Normal left and right atrial size. No significant valvular abnormalities. Patient says he has type 2 diabetes, hypertension. No history of strokes or TIAs in the past. He is a nonsmoker, does not drink alcohol. Home medications include simvastatin 20 mg, lisinopril 10 mg, Flomax, Protonix, trazodone, Lexapro, Lasix, gabapentin, metformin. Patient does not take any antiplatelet medication. Patient states that his hands and feet are cold. He has lost 35-40 pounds in one year. He has scrotal edema, severe peripheral edema. He has indwelling urinary catheter in place. Review of Systems All pertinent positive and negative review of systems as mentioned HPI, otherwise unremarkable. Past Medical History Past Medical History: Cancer, Diabetes Mellitus Additional Past Medical History / Comment(s): prostate cancer History of Any Multi-Drug Resistant Organisms: None Reported Additional Past Surgical History / Comment(s): oral surgery for implant Past Anesthesia/Blood Transfusion Reactions: No Reported Reaction Additional Past Anesthesia/Blood Transfusion Reaction / Comment(s): no blood transfusion Past Psychological History: No Psychological Hx Reported Smoking Status: Former smoker Past Alcohol Use History: None Reported Past Drug Use History: None Reported Medications and Allergies Home Medications Medication Instructions Recorded Confirmed Type Pantoprazole [Protonix] 40 mg PO DAILY 01/15/24 11/01/24 History Tamsulosin [Flomax] 0.4 mg PO DAILY 01/15/24 11/01/24 History traZODone HCL [Desyrel] 50 mg PO HS 01/15/24 11/01/24 History Acetaminophen [Tylenol] 650 mg PO Q4H PRN MDD 3gm 11/01/24 11/01/24 History Escitalopram [Lexapro] 10 mg PO DAILY 11/01/24 11/01/24 History Furosemide [Lasix] 20 mg PO BID 11/01/24 11/01/24 History Gabapentin 300 mg PO HS 11/01/24 11/01/24 History Magnesium Glycinate 100mg 200 mg PO BID 11/01/24 11/01/24 History Simvastatin [Zocor] 20 mg PO HS 11/01/24 11/01/24 History lisinopriL [Zestril] 10 mg PO DAILY 11/01/24 11/01/24 History metFORMIN HCL 500 mg PO BID 11/01/24 11/01/24 History Allergies Allergy/AdvReac Type Severity Reaction Status Date / Time No Known Allergies Allergy Verified 01/17/24 11:43 Physical Examination - Vital Signs Vital Signs: Vital Signs Temp Pulse Resp BP Pulse Ox 11/02/24 07:40 91 11/02/24 07:39 97.9 F 91 16 113/72 94 L 11/02/24 03:13 97.4 F L 87 16 113/65 95 11/02/24 00:00 97.9 F 65 16 102/62 98 11/01/24 20:00 97.7 F 80 17 99/61 95 11/01/24 15:54 97.4 F L 79 16 93/56 96 11/01/24 11:20 96.8 F L 81 16 120/71 95 11/01/24 11:07 97.7 F 79 16 109/70 97 Intake and Output 11/01/24 11/02/24 11/02/24 22:59 06:59 14:59 Intake Total 210 Output Total 710 500 Balance -500 -500 Intake: IV 10 Invasive Line 1 10 Oral 200 Output: Urine 710 500 Uretheral (Nunn) 360 Other: Voiding Method Indwelling Catheter Indwelling Catheter Indwelling Catheter Weight 94.5 kg Patient is an elderly male, in no acute distress. Patient is alert awake oriented to time place and person. Patient knows it is October 2024 and states he is currently in "[facility]", When I asked if it is [place], he said yes. He believes that he is in [facility]. Speech and language functions are normal. Patient can name and repeat very well. No aphasia or dysarthria. Attention, concentration is intact and fund of knowledge is slightly limited. Detail cognitive function testing deferred. On cranial nerve examination, pupils are equal, round and reacting to light, visual gibbs are full on confrontation, with no neglect on double simultaneous stimulation. Extraocular muscles are intact with no nystagmus. Face is symmetric, tongue protrudes to the midline. Palatal elevation and sensation normal, hearing and shoulder shrug normal, facial sensation normal. On muscle strength testing, there is no pronator drift and the strength is normal in arms and legs distally and proximally. Deep tendon reflexes are symmetric 2+ all over and plantars are flat bilaterally. Sensory to touch is equal with no neglect on double simultaneous stimulation. Cerebellar function showed no ataxia for [id number] testing, although patient was tremulous. No dysdiadochokinesia. No ataxia for [id number] testing on either side. Tone and bulk of muscles normal. Patient has mild fine tremors of outstretched hands. Gait deferred.. On general examination, there is no carotid bruit or murmur, S1-S2 audible. Chest is clear on consultation. Abdomen is soft nontender. No organomegaly, bowel sounds present. Peripheral pulses not felt. Patient has moderate to severe peripheral edema. Patient has hammertoes. Results - Laboratory Findings CBC and BMP: 11/02/24 05:46 11/02/24 05:46 Abnormal Lab Findings: Abnormal Labs 11/01/24 11/01/24 11/01/24 01:18 01:18 01:18 RBC 2.76 L Hgb 9.7 L Hct 28.7 L MCV 104.0 H Lymphocytes # 0.9 L PT 14.4 H INR 1.4 H APTT 31.4 H Sodium 134 L BUN 44 H Creatinine 1.43 H Glucose 104 H POC Glucose (mg/dL) Plasma Lactic Acid Bo Calcium 8.0 L AST 78 H Alkaline Phosphatase 167 H Troponin I Total Protein 6.1 L Albumin 2.2 L Urine Protein Urine Blood Ur Leukocyte Esterase Urine RBC Urine WBC Amorphous Sediment Urine Bacteria Hyaline Casts Urine Mucus 11/01/24 11/01/24 11/01/24 01:18 01:18 01:37 RBC Hgb Hct MCV Lymphocytes # PT INR APTT Sodium BUN Creatinine Glucose POC Glucose (mg/dL) Plasma Lactic Acid Bo 2.3 H* Calcium AST Alkaline Phosphatase Troponin I 0.086 H* Total Protein Albumin Urine Protein 1+ H Urine Blood Large H Ur Leukocyte Esterase Moderate H Urine RBC >182 H Urine WBC 9 H Amorphous Sediment Rare H Urine Bacteria Moderate H Hyaline Casts 48 H Urine Mucus Occasional H 11/01/24 11/01/24 11/01/24 05:59 06:11 10:02 RBC Hgb Hct MCV Lymphocytes # PT INR APTT Sodium BUN Creatinine Glucose POC Glucose (mg/dL) 116 H Plasma Lactic Acid Bo Calcium AST Alkaline Phosphatase Troponin I 0.109 H* 0.105 H* Total Protein Albumin Urine Protein Urine Blood Ur Leukocyte Esterase Urine RBC Urine WBC Amorphous Sediment Urine Bacteria Hyaline Casts Urine Mucus 01/11/01/24 11/01/24 11:35 16:27 20:28 RBC Hgb Hct MCV Lymphocytes # PT INR APTT Sodium BUN Creatinine Glucose POC Glucose (mg/dL) 131 H 154 H 266 H Plasma Lactic Acid Bo Calcium AST Alkaline Phosphatase Troponin I Total Protein Albumin Urine Protein Urine Blood Ur Leukocyte Esterase Urine RBC Urine WBC Amorphous Sediment Urine Bacteria Hyaline Casts Urine Mucus 11/02/24 11/02/24 11/02/24 05:46 05:46 05:57 RBC 2.90 L Hgb 9.9 L Hct 29.8 L MCV 102.9 H Lymphocytes # 0.8 L PT INR APTT Sodium 134 L BUN 44 H Creatinine 1.44 H Glucose POC Glucose (mg/dL) 143 H Plasma Lactic Acid Bo Calcium 8.1 L AST Alkaline Phosphatase Troponin I Total Protein Albumin Urine Protein Urine Blood Ur Leukocyte Esterase Urine RBC Urine WBC Amorphous Sediment Urine Bacteria Hyaline Casts Urine Mucus Assessment and Plan Assessment: * Possible TIA manifesting with slurred speech, right-sided weakness. Symptoms have completely resolved. Current NIH stroke scale is 0. * Diabetes * Congestive heart failure * Anasarca Plan: * Patient had possible TIA, symptoms have completely resolved. Patient needs TIA workup. * 2-D echo showed LVEF 55-60%. No obvious regional wall motion abnormalities. Normal left and right atrial size. No significant valvular abnormalities. * Carotid Doppler was ordered. It revealed moderate scattered calcified plaque in the common carotid arteries and carotid bifurcations, but no significant stenosis based on color and grayscale imaging. No hemodynamically significant stenosis. Antegrade flow in both vertebral arteries. * Hemoglobin A1c 5.9. Diabetes is well controlled. * Fasting lipid panel. Patient was on simvastatin 20 mg. Currently patient on Lipitor 40 mg. * Agree with starting aspirin 81 mg daily. * PT and OT. * DVT prophylaxis: Heparin 5000 units subcu every 8 hours. * Thank you for the consult.
[2024-11-02] MEDS: HEPARIN SODIUM,PORCINE 5,000 UNIT/ML 1 ML VIAL SQ SCH (23:01)
[2024-11-03 05:53] LABS: Glucose,Whole Blood 98 mg/dL (70-110)
[2024-11-03 07:37] LABS: Basophils % (A) 0 %; Eosinophils # (A) 0.1 k/uL (0-0.7); Eosinophils % (A) 1 %; HCT 28.7 % (39.0-53.0); HGB 9.7 gm/dL (13.0-17.5); Lymphocytes # (A) 1.1 k/uL (1.0-4.8); Lymphocytes % (A) 28 %; MCH 34.7 pg (25.0-35.0); MCHC 33.8 g/dL (31.0-37.0); MCV 102.6 fL (80.0-100.0); Macrocytosis Slight; Mean Platelet Volume 8.5; Monocytes # (A) 0.3 k/uL (0-1.0); Monocytes % (A) 9 %; Neutrophils # (A) 2.4 k/uL (1.3-7.7); Neutrophils % (A) 60 %; Platelet Count 161 k/uL (150-450); RDW 13.2 % (11.5-15.5); WBC 3.9 k/uL (3.8-10.6)
[2024-11-03 07:55] LABS: African American GFR (CKD) 53 (>60 ml/min/1.73 sqM); Anion Gap 2 mmol/L; Blood Urea Nitrogen 42 mg/dL (9-20); Calcium 7.9 mg/dL (8.4-10.2); Carbon Dioxide 30 mmol/L (22-30); Chloride 101 mmol/L (98-107); Glucose 94 mg/dL (74-99); Non-African American GFR(CKD) 46 (>60 ml/min/1.73 sqM); Potassium 3.7 mmol/L (3.5-5.1); Sodium 133 mmol/L (137-145)
--- NOTE | 2024-11-03 09:36 | P.PN ---
Subjective Progress Note Date: 11/02/24 Principal diagnosis: Reason for follow-up is a UTI Patient is a 74-year-old male with a past medical history significant for prostate cancer diabetes mellitus, presented to the hospital from local long term concerning for mental status changes patient appears to be more fatigued with slurred speech, patient did have a positive UA and with mental status changes concerning for UTI prompting this consultation. On today's evaluation that is 11/02/2024, patient did not have any fever and denies any chills, patient is breathing comfortably on room air, patient with no chest pain or cough patient did not have any abdominal pain nausea vomiting or any loose stools. Patient white count is 3.9 creatinine is 1.47 urine is growing gram-negative bacilli Objective - Vital Signs Vital signs: Vital Signs Temp 97.4 F L 11/02/24 11:33 Pulse 81 11/02/24 11:33 Resp 16 11/02/24 11:33 BP 100/64 11/02/24 11:33 Pulse Ox 95 11/02/24 11:33 FiO2 Intake & Output 11/01/24 11/02/24 11/02/24 18:59 06:59 18:59 Intake Total 555 10 360 Output Total 1435 850 450 Balance -880 -840 -90 Weight 94.5 kg 95 kg Intake: IV 15 10 Invasive Line 1 15 10 Oral 540 360 Output: Urine 1435 850 450 Uretheral (Nunn) 1435 450 Other: Voiding Method Indwelling Catheter Indwelling Catheter Indwelling Catheter - Exam GENERAL DESCRIPTION: An elderly male lying in bed in no distress RESPIRATORY SYSTEM: Unlabored breathing , decreased breath sounds at bases HEART: S1 S2 regular rate and rhythm , ABDOMEN: Soft , no tenderness EXTREMITIES: No edema feet - Labs CBC & Chem 7: 11/03/24 06:45 11/03/24 06:45 Labs: Abnormal Lab Results - Last 24 Hours (Table) 11/01/24 11/01/24 11/02/24 Range/Units 16:27 20:28 05:46 RBC 2.90 L (4.30-5.90) m/uL Hgb 9.9 L (13.0-17.5) gm/dL Hct 29.8 L (39.0-53.0) % MCV 102.9 H (80.0-100.0) fL Lymphocytes # 0.8 L (1.0-4.8) k/uL Sodium (137-145) mmol/L BUN (9-20) mg/dL Creatinine (0.66-1.25) mg/dL POC Glucose (mg/dL) 154 H 266 H (70-110) mg/dL Calcium (8.4-10.2) mg/dL 11/02/24 11/02/24 11/02/24 Range/Units 05:46 05:57 11:32 RBC (4.30-5.90) m/uL Hgb (13.0-17.5) gm/dL Hct (39.0-53.0) % MCV (80.0-100.0) fL Lymphocytes # (1.0-4.8) k/uL Sodium 134 L (137-145) mmol/L BUN 44 H (9-20) mg/dL Creatinine 1.44 H (0.66-1.25) mg/dL POC Glucose (mg/dL) 143 H 148 H (70-110) mg/dL Calcium 8.1 L (8.4-10.2) mg/dL Assessment and Plan (1) UTI (urinary tract infection) Current Visit: Yes Status: Acute Code(s): N39.0 - URINARY TRACT INFECTION, SITE NOT SPECIFIED SNOMED Code(s): 16304679 Plan: 1patient presented to hospital with mental status changes generalized weakness decreased appetite difficulty urination did have some suprapubic discomfort positive UA concerning for symptomatic UTI likely from to the gram-negative pathogen 2-patient urine is currently growing gram-negative bacilli ID sensitive is pending patient to be treated with Rocephin 1 g daily while waiting for the cu lture to finalize Dictation was produced using [employer] dictation software. please excuse any grammatical, word or spelling errors. Time with Patient: Less than 30
--- NOTE | 2024-11-03 10:50 | P.PN ---
Subjective HISTORY OF PRESENT ILLNESS: This is a 74-year-old male with a past medical history significant for hypertension, hyperlipidemia, and diabetes. 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 We have been asked to see the patient in consultation for congestive heart failure. Patient examined at the bedside. Patient is somewhat confused at the time of examination. There is no family to provide any additional history. According to ER records he was brought to the hospital from [facility] secondary to strokelike symptoms. The patient currently denies any chest pain or pressure. He denies any shortness of breath. Blood pressures have been soft with a systolic in the [id number]. DIAGNOSTICS: - EKG reveals sinus mechanism with poor R wave progression. Low voltage QRS. No signs of acute ischemia.. - Chest xray moderate vascular congestion - CT of the brain: Negative for acute hemorrhage, hydrocephalus, or mass effect - Laboratory data: WBCs 4.7. Hemoglobin 9.7. Platelet count 185. INR 1.4. Sodium 134. Potassium 4.5. BUN 44. Creatinine 1.43. Troponin 0.086. 0.109. proBNP 3410. - Current home cardiac medications include Lasix 20 mg twice a day, lisinopril 10 mg daily, simvastatin 20 mg at night. - No previous echocardiogram, stress test, or cardiac catheterization available in EMR for review 11/02/2024 Patient examined this morning the bedside. Patient currently denies chest pain or pressure. He denies shortness of breath. Patient was started on IV Lasix yesterday per primary medicine. Echocardiogram completed revealing ejection fraction 55 to 60%, trace aortic regurgitation, trace mitral regurgitation, and trace tricuspid regurgitation. 11/03/2024 Patient examined this morning the bedside. Patient currently denies chest pain or pressure. He denies shortness of breath. He continues to have significant lower extremity edema. He remains on IV Lasix. Creatinine today 1.47. PHYSICAL EXAM: VITAL SIGNS: Reviewed. GENERAL: Well-developed in no acute distress. HEENT: Head is normocephalic. Pupils are equal, round. Sclerae anicteric. Mucous membranes of the mouth are moist. Neck supple. No JVD or thyromegaly LUNGS: Respirations even and unlabored. Lungs essentially clear to auscultation bilaterally. HEART: Regular rate and rhythm. S1 and S2 heard. ABDOMEN: Soft. Nondistended. Nontender. EXTREMITIES: Normal range of motion. No clubbing or cyanosis. Peripheral pulses intact. Bilateral lower extremity edema NEUROLOGIC: Awake and alert. ASSESSMENT: Altered mental status Urinary tract infection Borderline hypotension Abnormal troponins, likely type II [place] secondary to infectious process Acute on chronic heart failure with preserved EF Acute kidney injury, baseline unknown Hypertension Hyperlipidemia Diabetes PLAN: Continue current cardiac medications Continue IV Lasix 40 mg every 12 hours Daily weights, accurate intake and output, and monitoring of kidney function Continue to hold lisinopril Further recommendations pending patient course Nurse practitioner note has been reviewed by physician. Signing provider agrees with the documented findings, assessment, and plan of care documented by [employer] as a scribe. Objective - Vital Signs Vital signs: Vital Signs Temp 98.4 F 11/03/24 08:11 Pulse 78 11/03/24 08:11 Resp 16 11/03/24 08:11 BP 103/56 11/03/24 08:11 Pulse Ox 94 L 11/03/24 08:11 FiO2 Intake & Output 11/02/24 11/03/24 11/03/24 18:59 06:59 18:59 Intake Total 1030 10 240 Output Total 875 975 Balance 155 -965 240 Weight 95 kg 89.4 kg Intake: IV 10 10 Invasive Line 1 10 10 Oral 1020 240 Output: Urine 875 975 Uretheral (Nunn) 450 Other: Voiding Method Indwelling Catheter Indwelling Catheter Indwelling Catheter # Bowel Movements 1 - Labs CBC & Chem 7: 11/03/24 06:45 11/03/24 06:45 Labs: Abnormal Lab Results - Last 24 Hours (Table) 11/02/24 11/02/24 11/02/24 Range/Units 11:32 16:10 20:10 RBC (4.30-5.90) m/uL Hgb (13.0-17.5) gm/dL Hct (39.0-53.0) % MCV (80.0-100.0) fL Sodium (137-145) mmol/L BUN (9-20) mg/dL Creatinine (0.66-1.25) mg/dL POC Glucose (mg/dL) 148 H 153 H 164 H (70-110) mg/dL Calcium (8.4-10.2) mg/dL 11/03/24 11/03/24 Range/Units 06:45 06:45 RBC 2.80 L (4.30-5.90) m/uL Hgb 9.7 L (13.0-17.5) gm/dL Hct 28.7 L (39.0-53.0) % MCV 102.6 H (80.0-100.0) fL Sodium 133 L (137-145) mmol/L BUN 42 H (9-20) mg/dL Creatinine 1.47 H (0.66-1.25) mg/dL POC Glucose (mg/dL) (70-110) mg/dL Calcium 7.9 L (8.4-10.2) mg/dL Microbiology - Last 24 Hours (Table) 11/01/24 06:30 Urine Culture - Preliminary Urine,Catheterized Gram Neg Bacilli
--- NOTE | 2024-11-03 10:51 | PN ---
PROGRESS NOTE DATE OF SERVICE: 11/02/2024 SUBJECTIVE: This is a 74-year-old gentleman admitted with CHF acute exacerbation, is confused. The patient continues to be confused at this time. The troponin is elevated at 0.105 and a carotid Doppler showed bilateral plaques. Multiple consultants are following the patient closely. The patient had features of UTI. The cultures are negative so far. PAST MEDICAL HISTORY: Reviewed. REVIEW OF SYSTEMS: Could not be taken. CURRENT MEDICATIONS: Reviewed. PHYSICAL EXAMINATION: VITAL SIGNS: Pulse is 81, blood pressure 100/64, respirations 16. HEENT: Conjunctivae normal. NECK: No JVD. CARDIOVASCULAR: S1, S2. RESPIRATIONS: Breath sounds diminished at the bases. A few scattered rhonchi. ABDOMEN: Soft. NERVOUS SYSTEM: Nonfocal. LABORATORY DATA: Creatinine is 1.44, hemoglobin 9.9. UA noted. ASSESSMENT: 1. Congestive heart failure acute exacerbation, ejection fraction unknown. 2. Troponin elevated, rule out acute non ST-segment elevation myocardial infarction. 3. Change in mental status, acute metabolic encephalopathy, rule out stroke. 4. Rule out urinary tract infection. 5. Diabetes mellitus, type 2. 6. Prostate disorder. 7. Multiple medical issues. RECOMMENDATIONS: Recommend to continue current management and continue symptomatic treatment. The patient lives at home. Apparently, at this time, I recommend PT, OT evaluation, possible ECF rehab. Otherwise, the patient is started on Rocephin empirically. Closely monitor with multiple consultants. Guarded prognosis. Further recommendations to follow. MMKYRIE / LEOPOLDON: [id number] /
[2024-11-03 11:22] LABS: Glucose,Whole Blood 158 mg/dL (70-110)
--- NOTE | 2024-11-03 12:36 | P.PN ---
Subjective Progress Note Date: 11/03/24 Principal diagnosis: Shortness of breath. Pulmonary consult dated November 01, 2024. 74-year-old male who is seen today in room 373. We were consulted for shortness of breath. The patient presented to the emergency department, on November 01, at 1:00 in the morning, with neurologic complaints. He came in from one of the local nursing homes. The patient himself is not a particularly good historian and most of the history is obtained from the medical record. In addition to mental status changes, the patient apparently complained of some shortness of breath. He apparently was evaluated for possible CVA as well. Currently, the patient's stable from the pulmonary standpoint. His room air saturations ranged from 95% up to 97%. He appears in no acute distress. History includes prostate cancer, diabetes mellitus, hypertension, and gastroesophageal reflux disease. L aboratory data includes a white count 4.7, hemoglobin 9.7, hematocrit 28.7, and a platelet count of 185,000. PT 14.4, INR 1.4, PTT 31.4, sodium 134, potassium 4.5, chlorides 103, CO2 25, BUN 44, and creatinine 1.43. Glucose is 104. AST of 78. Troponin 0.105. N-terminal proBNP 3410. Procalcitonin level was 0.29. Urine shows 1+ protein, large amount of blood, moderate positive leukocyte cheyanne ase, rater than 182 RBCs, 9 WBCs, and moderate urine bacteria. The patient is currently on Rocephin. Brain CT shows nothing acute. Chest x-ray is consistent with fluid overload Progress note dated November 02, 2024. 74-year-old male seen in consultation yesterday. He is seen again today in room 373. He is getting saline at 20 cc an hour. He is not requiring any supplemental oxygen. He is laying nearly flat in bed, without any shortness of breath or difficulty breathing. He is awake and alert. Not a particularly good historian. Current labs include a white count of 3.9, hemoglobin 9.9, hematocrit 29.8, platelet count 177,000. Sodium 134, potassium 4, chlorides 103, CO2 25, BUN 44, and creatinine 1.44. Glucose is 148. Calcium is 8.1. Progress note dated November 03, 2024. 74-year-old male seen in consultation 2 days ago. Please see the 2 notes above. The patient was admitted, with a diagnosis of shortness of breath, secondary to CHF. Currently he is resting comfortably in bed. He is flat, in no acute distress. He is awake and alert. The patient is getting saline at 20 cc an hour. According to him, he had an uneventful night. Current labs include a white count 3.9, hemoglobin 9.7, hematocrit 28.7, and a normal platelet count. Sodium 133, potassium 3.7, chlorides 101, CO2 30, BUN 42, creatinine 1.47. Glucose 158. Calcium 7.9. Urine is revealing gram-negative bacilli. Is not yet been identified. The patient is on ceftriaxone. Objective - Vital Signs Vital signs: Vital Signs Temp 98.3 F 11/03/24 12:16 Pulse 82 11/03/24 12:16 Resp 16 11/03/24 12:16 BP 90/55 11/03/24 12:16 Pulse Ox 97 11/03/24 12:16 FiO2 Intake & Output 11/02/24 11/03/24 11/03/24 18:59 06:59 18:59 Intake Total 1030 10 240 Output Total 875 975 800 Balance 155 -965 -560 Weight 95 kg 89.4 kg Intake: IV 10 10 Invasive Line 1 10 10 Oral 1020 240 Output: Urine 875 975 800 Uretheral (Nunn) 450 Other: Voiding Method Indwelling Catheter Indwelling Catheter Indwelling Catheter # Bowel Movements 1 - Exam No acute distress, oriented 3. Very poor historian. No respiratory distress. Currently on room air. HEENT examination is grossly unremarkable. Mucous membranes are moist. No oral lesions. Neck supple. Full range of motion. No adenopathy thyromegaly or neck vein distention. Cardiovascular examination reveals regular rhythm rate. S1-S2 normal. No S3 or S4. No discernible murmur noted. Lungs reveal scattered crackles. Breath sounds equal. No rhonchi. No wheezes. Abdomen soft bowel sounds are heard. No masses or tenderness. Extremities are intact. No cyanosis or clubbing. Mild lower extremity edema. Skin is without rash or lesion. Neurologic examination is brief but nonfocal. - Labs CBC & Chem 7: 11/03/24 06:45 11/03/24 06:45 Labs: Abnormal Lab Results - Last 24 Hours (Table) 11/02/24 11/02/24 11/03/24 Range/Units 16:10 20:10 06:45 RBC (4.30-5.90) m/uL Hgb (13.0-17.5) gm/dL Hct (39.0-53.0) % MCV (80.0-100.0) fL Sodium 133 L (137-145) mmol/L BUN 42 H (9-20) mg/dL Creatinine 1.47 H (0.66-1.25) mg/dL POC Glucose (mg/dL) 153 H 164 H (70-110) mg/dL Calcium 7.9 L (8.4-10.2) mg/dL 11/03/24 11/03/24 Range/Units 06:45 11:21 RBC 2.80 L (4.30-5.90) m/uL Hgb 9.7 L (13.0-17.5) gm/dL Hct 28.7 L (39.0-53.0) % MCV 102.6 H (80.0-100.0) fL Sodium (137-145) mmol/L BUN (9-20) mg/dL Creatinine (0.66-1.25) mg/dL POC Glucose (mg/dL) 158 H (70-110) mg/dL Calcium (8.4-10.2) mg/dL Microbiology - Last 24 Hours (Table) 11/01/24 06:30 Urine Culture - Preliminary Urine,Catheterized Gram Neg Bacilli Assessment and Plan Assessment: Shortness of breath, likely secondary to an acute CHF exacerbation. Acute mental status changes, which may relate to a urinary tract infection with gram-negative bacilli. History of hypertension. History of diabetes mellitus. History of gastroesophageal reflux disease. History of prostate cancer. Plan: Plan dated November 01, 2024. The patient is seen today in room 373. The patient is currently on room air. No evidence of respiratory difficulty or distress. The patient's procalcitonin level was normal at 0.29. The patient may have a urinary tract infection, and that is currently being evaluated by the primary service. Chest x-ray is consistent with CHF. N-terminal proBNP was elevated at 3410. CT scan of the brain was negative. We will continue to follow the patient, make recommendations. No additional recommendations at this time. Labs, x-rays, and all medications have been reviewed. Plan dated November 02, 2024. The patient is seen today in room 373. He remains comfortable. He is lying flat in bed. No respiratory distress or difficulty. He can speak in full sentences. Labs, x-rays, and all medications are reviewed. The patient's N- terminal proBNP was elevated. We will continue to follow make recommendations along the way. Prognosis is guarded. Cultures are thus far negative. Procalcitonin level was normal at 0.29. Plan dated November 03, 2024. The patient is seen today in room 373. The patient currently remains on Rocephin, for possible urinary tract infection. Interestingly, the patient's procalcitonin level was normal at 0.29. Labs, x-rays, and medications are reviewed. He remains on room air. The patient denies any respiratory difficulty or distress. He is not coughing or wheezing. He is not having any chest pain or chest discomfort. We will continue to follow make recommendations along the way. Prognosis is guarded. Time with Patient: Less than 30
[2024-11-03 12:49] LABS: Chol/HDL Ratio 2.93 Ratio; LDL Cholesterol,Calculated 35.4 mg/dL (0.0-131.0); VLDL Calculation 12.72 mg/dL (5.00-40.00)
--- NOTE | 2024-11-03 14:52 | P.PN ---
Subjective Progress Note Date: 11/03/24 Principal diagnosis: Reason for follow-up is a UTI Patient is a 74-year-old male with a past medical history significant for prostate cancer diabetes mellitus, presented to the hospital from local long term concerning for mental status changes patient appears to be more fatigued with slurred speech, patient did have a positive UA and with mental status changes concerning for UTI prompting this consultation. On today's evaluation that is 11/03/2024, Patient is afebrile patient is currently on room air and denies having any shortness of breath, the patient denies any chest pain did have occasional cough, the patient denies any nausea vomiting did not have any abdominal pain and no diarrhea. Patient white count is 3.9, creatinine is 1.47 urine is growing gram-negative bacilli Objective - Vital Signs Vital signs: Vital Signs Temp 98.3 F 11/03/24 12:16 Pulse 82 11/03/24 14:00 Resp 16 11/03/24 14:00 BP 90/55 11/03/24 12:16 Pulse Ox 97 11/03/24 12:16 FiO2 Intake & Output 11/02/24 11/03/24 11/03/24 18:59 06:59 18:59 Intake Total 1030 10 480 Output Total 875 975 800 Balance 155 -965 -320 Weight 95 kg 89.4 kg Intake: IV 10 10 Invasive Line 1 10 10 Oral 1020 480 Output: Urine 875 975 800 Uretheral (Nunn) 450 Other: Voiding Method Indwelling Catheter Indwelling Catheter Indwelling Catheter # Bowel Movements 1 - Exam GENERAL DESCRIPTION: An elderly male lying in bed in no distress RESPIRATORY SYSTEM: Unlabored breathing , decreased breath sounds at bases HEART: S1 S2 regular rate and rhythm , ABDOMEN: Soft , no tenderness EXTREMITIES: No edema feet - Labs CBC & Chem 7: 11/03/24 06:45 11/03/24 06:45 Labs: Abnormal Lab Results - Last 24 Hours (Table) 11/02/24 11/02/24 11/03/24 Range/Units 16:10 20:10 06:45 RBC (4.30-5.90) m/uL Hgb (13.0-17.5) gm/dL Hct (39.0-53.0) % MCV (80.0-100.0) fL Sodium 133 L (137-145) mmol/L BUN 42 H (9-20) mg/dL Creatinine 1.47 H (0.66-1.25) mg/dL POC Glucose (mg/dL) 153 H 164 H (70-110) mg/dL Calcium 7.9 L (8.4-10.2) mg/dL HDL Cholesterol 24.90 L (40.00-60.00) mg/dL 11/03/24 11/03/24 Range/Units 06:45 11:21 RBC 2.80 L (4.30-5.90) m/uL Hgb 9.7 L (13.0-17.5) gm/dL Hct 28.7 L (39.0-53.0) % MCV 102.6 H (80.0-100.0) fL Sodium (137-145) mmol/L BUN (9-20) mg/dL Creatinine (0.66-1.25) mg/dL POC Glucose (mg/dL) 158 H (70-110) mg/dL Calcium (8.4-10.2) mg/dL HDL Cholesterol (40.00-60.00) mg/dL Microbiology - Last 24 Hours (Table) 11/01/24 06:30 Urine Culture - Preliminary Urine,Catheterized Gram Neg Bacilli Assessment and Plan (1) UTI (urinary tract infection) Current Visit: Yes Status: Acute Code(s): N39.0 - URINARY TRACT INFECTION, SITE NOT SPECIFIED SNOMED Code(s): 47515233 Plan: 1patient presented to hospital with mental status changes generalized weakness decreased appetite difficulty urination did have some suprapubic discomfort positive UA concerning for symptomatic UTI likely from to the gram-negative pathogen 2-patient urine is currently growing gram-negative bacilli with ID sensitivities still pending we will continue with Rocephin while waiting for the culture to finalize to determine discharge antibiotics Dictation was produced using [employer] dictation software. please excuse any grammatical, word or spelling errors. Time with Patient: Less than 30
--- NOTE | 2024-11-03 15:38 | XR ---
EXAMINATION TYPE: XR chest 1V portable DATE OF EXAM: 11/03/2024 3:22 PM COMPARISON: Previous chest radiograph 11/01/2024. CLINICAL INDICATION: Male, 74 years old with history of chf; [facility] TECHNIQUE: XR chest 1V portable Frontal view of the chest. FINDINGS: Cardiomegaly and pulmonary vascular congestive changes bilaterally. [id number] left and small right pleural effusions. No pneumothorax. No acute osseous abnormality. IMPRESSION: Cardiomegaly, vascular congestion and bilateral pleural effusions suggestive of pulmonary edema. Find ings are similar to radiograph dated 11/01/2024. [facility], , 11/03/2024 3:36 PM
[2024-11-03] MEDS: FUROSEMIDE 40 MG TAB PO SCH (16:18)
[2024-11-03 16:48] LABS: Glucose,Whole Blood 212 mg/dL (70-110)
[2024-11-03 20:31] LABS: Glucose,Whole Blood 146 mg/dL (70-110)
--- NOTE | 2024-11-03 22:43 | P.PN ---
Subjective Progress Note Date: 11/03/24 Patient was seen for a follow-up. Patient's family members were also present today. Patient continues to have swelling in the lower limbs. No new concerns. Objective - Vital Signs Vital signs: Vital Signs Temp 98.3 F 11/03/24 12:16 Pulse 82 11/03/24 14:00 Resp 16 11/03/24 14:00 BP 90/55 11/03/24 12:16 Pulse Ox 97 11/03/24 12:16 FiO2 Intake & Output 11/02/24 11/03/24 11/03/24 18:59 06:59 18:59 Intake Total 1030 10 480 Output Total 875 975 800 Balance 155 -965 -320 Weight 95 kg 89.4 kg Intake: IV 10 10 Invasive Line 1 10 10 Oral 1020 480 Output: Urine 875 975 800 Uretheral (Nunn) 450 Other: Voiding Method Indwelling Catheter Indwelling Catheter Indwelling Catheter # Bowel Movements 1 - Exam Unchanged. Medication stable. Muscle strength is normal in the upper limbs distally and proximally. In the lower limbs, hip flexion is 4 4-, ankle dorsiflexion 5, toe extension 4+5-. Patient has slightly decreased range of motion of the ankles. Patient has hammertoes and high arched feet. - Labs CBC & Chem 7: 11/03/24 06:45 11/03/24 06:45 Labs: Abnormal Lab Results - Last 24 Hours (Table) 11/02/24 11/02/24 11/03/24 Range/Units 16:10 20:10 06:45 RBC (4.30-5.90) m/uL Hgb (13.0-17.5) gm/dL Hct (39.0-53.0) % MCV (80.0-100.0) fL Sodium 133 L (137-145) mmol/L BUN 42 H (9-20) mg/dL Creatinine 1.47 H (0.66-1.25) mg/dL POC Glucose (mg/dL) 153 H 164 H (70-110) mg/dL Calcium 7.9 L (8.4-10.2) mg/dL HDL Cholesterol 24.90 L (40.00-60.00) mg/dL 11/03/24 11/03/24 Range/Units 06:45 11:21 RBC 2.80 L (4.30-5.90) m/uL Hgb 9.7 L (13.0-17.5) gm/dL Hct 28.7 L (39.0-53.0) % MCV 102.6 H (80.0-100.0) fL Sodium (137-145) mmol/L BUN (9-20) mg/dL Creatinine (0.66-1.25) mg/dL POC Glucose (mg/dL) 158 H (70-110) mg/dL Calcium (8.4-10.2) mg/dL HDL Cholesterol (40.00-60.00) mg/dL Microbiology - Last 24 Hours (Table) 11/01/24 06:30 Urine Culture - Preliminary Urine,Catheterized Gram Neg Bacilli Assessment and Plan Assessment: * Possible TIA manifesting with slurred speech, right-sided weakness. Symptoms have completely resolved. Current NIH stroke scale is 0. * Altered mental status, likely due to metabolic encephalopathy, improved * Acute UTI gram-negative bacilli. Patient on ceftriaxone. * Bilateral leg weakness, with evidence of possible peripheral neuropathy. * Hypertension * Diabetes * Elevated troponins * Congestive heart failure, cardiology on board. * Moderate renal insufficiency * Anasarca Plan: * Patient had possible TIA, symptoms have completely resolved. Patient had undergone TIA workup as below. * 2-D echo showed LVEF 55-60%. No obvious regional wall motion abnormalities. Normal left and right atrial size. No significant valvular abnormalities. * Carotid Doppler was ordered. It revealed moderate scattered calcified plaque in the common carotid arteries and carotid bifurcations, but no significant stenosis based on color and grayscale imaging. No hemodynamically significant stenosis. Antegrade flow in both vertebral arteries. * Hemoglobin A1c 5.9. Diabetes is well controlled. * Fasting lipid panel with cholesterol 73, LDL 35, HDL 24, triglycerides 63. Patient was on simvastatin 20 mg. Currently patient on Lipitor 40 mg. * Agree with starting aspirin 81 mg daily. * Patient has peripheral neuropathy. We will check B12, folate. * Patient has an appointment with neurologist outpatient for evaluation of leg weakness. Patient may need EMG testing. * For UTI, patient is on ceftriaxone. * Other medical management as per IM and other specialties on board. * PT and OT. * DVT prophylaxis: Heparin 5000 units subcu every 8 hours. * Discussed with family members. * Dr. Jesse Zarco to resume neurology service on the morning.
--- NOTE | 2024-11-04 04:57 | PN ---
PROGRESS NOTE DATE OF SERVICE: 11/03/2024 SUBJECTIVE: This is a 74-year-old gentleman admitted with CHF acute exacerbation, also complaining of some confusion. The patient also has gram-negative bacilli in the urine. The patient is also complaining of generalized transient weakness. The patient apparently lives with some caregiver arrangement. PAST MEDICAL HISTORY: Reviewed. REVIEW OF SYSTEMS: Fourteen-point review of systems is negative except as mentioned earlier. CURRENT MEDICATIONS: Reviewed. PHYSICAL EXAMINATION: VITAL SIGNS: Pulse is 82, blood pressure 90/58, respirations 16. HEENT: Conjunctivae normal. CARDIOVASCULAR: S1, S2. RESPIRATIONS: Breath sounds diminished at the bases. ABDOMEN: Soft. NERVOUS SYSTEM: Nonfocal. LABORATORY DATA: Reviewed. ASSESSMENT: 1. Congestive heart failure acute exacerbation, ejection fraction of 55% to 60%, with acute on chronic diastolic dysfunction. 2. Relative hypotension. 3. Troponin elevated, rule out acute non ST-segment elevation myocardial infarction. 4. Change in mental status, acute metabolic encephalopathy. 5. Acute urinary tract infection with gram-negative bacilli. 6. Diabetes mellitus, type 2. 7. Gait dysfunction. 8. Prostate disorder. 9. Multiple medical issues. RECOMMENDATIONS: Recommend to continue current management and continue symptomatic treatment. Otherwise, continue with antibiotics. Closely follow with multiple consultants. I would continue with diuretics. I would recommend repeat chest x-ray. Guarded prognosis. Further recommendations to follow. MMODL / IJN: [id number] /
[2024-11-04 06:09] LABS: Glucose,Whole Blood 98 mg/dL (70-110)
[2024-11-04 06:19] LABS: Basophils % (A) 1 %; Eosinophils # (A) 0.1 k/uL (0-0.7); Eosinophils % (A) 1 %; HCT 30.5 % (39.0-53.0); HGB 10.2 gm/dL (13.0-17.5); Lymphocytes # (A) 1.5 k/uL (1.0-4.8); Lymphocytes % (A) 30 %; MCH 34.3 pg (25.0-35.0); MCHC 33.6 g/dL (31.0-37.0); MCV 102.2 fL (80.0-100.0); Macrocytosis Slight; Mean Platelet Volume 8.3; Monocytes # (A) 0.4 k/uL (0-1.0); Monocytes % (A) 9 %; Neutrophils # (A) 2.9 k/uL (1.3-7.7); Neutrophils % (A) 58 %; Platelet Count 167 k/uL (150-450); RBC 2.98 m/uL (4.30-5.90); RDW 13.1 % (11.5-15.5)
[2024-11-04 06:34] LABS: African American GFR (CKD) 54 (>60 ml/min/1.73 sqM); Anion Gap 3 mmol/L; Blood Urea Nitrogen 39 mg/dL (9-20); Carbon Dioxide 30 mmol/L (22-30); Chloride 100 mmol/L (98-107); Glucose 99 mg/dL (74-99); Non-African American GFR(CKD) 46 (>60 ml/min/1.73 sqM); Potassium 3.7 mmol/L (3.5-5.1); Sodium 133 mmol/L (137-145)
[2024-11-04 11:47] VITALS: BMI 27.6
[2024-11-04 11:56] LABS: Glucose,Whole Blood 142 mg/dL (70-110)
--- NOTE | 2024-11-04 14:32 | P.PN ---
Subjective Progress Note Date: 11/04/24 HISTORY OF PRESENT ILLNESS: This is a 74-year-old male with a past medical history significant for hype rtension, hyperlipidemia, and diabetes. 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 We have been asked to see the patient in consultation for congestive heart failure. Patient examined at the bedside. Patient is somewhat confused at the time of examination. There is no family to provide any addit ional history. According to ER records he was brought to the hospital from [facility] secondary to strokelike symptoms. The patient currently denies any chest pain or pressure. He denies any shortness of breath. Blood pressures have been soft with a systolic in the [id number]. DIAGNOSTICS: - EKG reveals sinus mechanism with poor R wave progression. Low voltage QRS. No signs of acute ischemia.. - Chest xray moderate vascular congestion - CT of the brain: Negative for acute hemorrhage, hydrocephalus, or mass effect - Laboratory data: WBCs 4.7. Hemoglobin 9.7. Platelet count 185. INR 1.4. Sodium 134. Potassium 4.5. BUN 44. Creatinine 1.43. Troponin 0.086. 0.109. proBNP 3410. - Current home cardiac medications include Lasix 20 mg twice a day, lisinopril 10 mg daily, simvastatin 20 mg at night. - No previous echocardiogram, stress test, or cardiac catheterization available in EMR for review 11/02/2024 Patient examined this morning the bedside. Patient currently denies chest pain or pressure. He denies shortness of breath. Patient was started on IV Lasix yesterday per primary medicine. Echocardiogram completed revealing ejection fraction 55 to 60%, trace aortic regurgitation, trace mitral regurgitation, and trace tricuspid regurgitation. 11/03/2024 Patient examined this morning the bedside. Patient currently denies chest pain or pressure. He denies shortness of breath. He continues to have significant lower extremity edema. He remains on IV Lasix. Creatinine today 1.47. 11/04 Patient seen and examined. He has been maintained on IV Lasix 40 mg every 12 hours. We will plan to transition him to oral Lasix today. Blood pressure 99/60, heart rate 83, pulse ox 94% on room air. Repeat blood work reveals hemoglobin 10.2, sodium 133, potassium 3.7, BUN 39 and creatinine 1.46. Chest x-ray reveals cardiomegaly, vascular congestion and bilateral pleural effusion. TSH 3.44. PHYSICAL EXAM: VITAL SIGNS: Reviewed. GENERAL: Well-developed in no acute distress. HEENT: Head is normocephalic. Pupils are equal, round. Sclerae anicteric. Mucous membranes of the mouth are moist. Neck supple. No JVD or thyromegaly LUNGS: Respirations even and unlabored. Lungs essentially clear to auscultation bilaterally. HEART: Regular rate and rhythm. S1 and S2 heard. ABDOMEN: Soft. Nondistended. Nontender. EXTREMITIES: Normal range of motion. No clubbing or cyanosis. Peripheral pulses intact. Bilateral lower extremity edema NEUROLOGIC: Awake and alert. ASSESSMENT: Altered mental status Urinary tract infection Borderline hypotension Abnormal troponins, likely type II MA secondary to infectious process Acute on chronic heart failure with preserved EF Acute kidney injury, baseline unknown Hypertension Hyperlipidemia Diabetes PLAN: Continue current cardiac medications Transition IV Lasix to oral 40 mg twice daily Daily weights, accurate intake and output, and monitoring of kidney function Continue to hold lisinopril Cardiology will sign off this case and follow on an as-needed basis. Please reconsult for any new concerns. Patient may follow-up in the office in one to 2 weeks. Nurse practitioner note has been reviewed by physician. Signing provider agrees with the documented findings, assessment, and plan of care documented by HIGH SCHOOL COMPUTER SCIENCE TEACHER as a scribe. Objective - Vital Signs Vital signs: Vital Signs Temp 97.9 F 11/04/24 04:16 Pulse 72 11/04/24 04:16 Resp 16 11/04/24 04:16 BP 114/72 11/04/24 04:16 Pulse Ox 94 L 11/04/24 04:16 FiO2 Intake & Output 11/03/24 11/04/24 11/04/24 18:59 06:59 18:59 Intake Total 720 Output Total 800 900 Balance -80 -900 Weight 89.7 kg Intake: Oral 720 Output: Urine 800 900 Other: Voiding Method Indwelling Catheter Indwelling Catheter - Labs CBC & Chem 7: 11/04/24 05:44 11/04/24 05:44 Labs: Abnormal Lab Results - Last 24 Hours (Table) 11/02/24 11/02/24 11/03/24 Range/Units 06:45 06:45 06:45 RBC (4.30-5.90) m/uL Hgb (13.0-17.5) gm/dL Hct (39.0-53.0) % MCV (80.0-100.0) fL Sodium (137-145) mmol/L BUN (9-20) mg/dL Creatinine (0.66-1.25) mg/dL POC Glucose (mg/dL) (70-110) mg/dL Calcium (8.4-10.2) mg/dL HDL Cholesterol 24.90 L (40.00-60.00) mg/dL Vitamin B12 953.0 H (200.0-944.0) pg/mL Folate 3.00 L (4.40-31.00) ng/mL 11/03/24 11/03/24 11/03/24 Range/Units 11:21 16:47 20:29 RBC (4.30-5.90) m/uL Hgb (13.0-17.5) gm/dL Hct (39.0-53.0) % MCV (80.0-100.0) fL Sodium (137-145) mmol/L BUN (9-20) mg/dL Creatinine (0.66-1.25) mg/dL POC Glucose (mg/dL) 158 H 212 H 146 H (70-110) mg/dL Calcium (8.4-10.2) mg/dL HDL Cholesterol (40.00-60.00) mg/dL Vitamin B12 (200.0-944.0) pg/mL Folate (4.40-31.00) ng/mL 11/04/24 11/04/24 Range/Units 05:44 05:44 RBC 2.98 L (4.30-5.90) m/uL Hgb 10.2 L (13.0-17.5) gm/dL Hct 30.5 L (39.0-53.0) % MCV 102.2 H (80.0-100.0) fL Sodium 133 L (137-145) mmol/L BUN 39 H (9-20) mg/dL Creatinine 1.46 H (0.66-1.25) mg/dL POC Glucose (mg/dL) (70-110) mg/dL Calcium 8.0 L (8.4-10.2) mg/dL HDL Cholesterol (40.00-60.00) mg/dL Vitamin B12 (200.0-944.0) pg/mL Folate (4.40-31.00) ng/mL Microbiology - Last 24 Hours (Table) 11/01/24 06:30 Urine Culture - Final Urine,Catheterized Klebsiella pneumo ESBL MDRO
[2024-11-04 14:36] LABS: Appearance,Urine Clear (Clear); Bacteria,Urine Rare /hpf; Bilirubin,Urine Negative (Negative); Blood,Urine Moderate (Negative); Color,Urine Colorless; Glucose,Urine (UA) Negative (Negative); Hyaline Casts,Urine 1 /lpf (0-2); Ketones,Urine Negative (Negative); Leukocyte Esterase,Urine Negative (Negative); Mucus,Urine Rare /hpf; Nitrite,Urine Negative (Negative); Protein,Urine Negative (Negative); RBC,Urine 10 /hpf (0-5); Specific Gravity,Urine 1.009 (1.001-1.035); Urobilinogen,Urine <2.0 mg/dL (<2.0); WBC,Urine <1 /hpf (0-5)
--- NOTE | 2024-11-04 14:46 | P.PN ---
Subjective Progress Note Date: 11/04/24 Pulmonary consult dated November 01, 2024. 74-year-old male who is seen today in room 373. We were consulted for shortness of breath. The patient presented to the emergency department, on November 01, at 1:00 in the morning, with neurologic complaints. He came in from one of the local nursing homes. The patient himself is not a particularly good historian and most of the history is obtained from the medical record. In addition to mental status changes, the patient apparently complained of some shortness of breath. He apparently was evaluated for possible CVA as well. Currently, the patient's stable from the pulmonary standpoint. His room air saturations ranged from 95% up to 97%. He appears in no acute distress. History includes prostate cancer, diabetes mellitus, hypertension, and gastroesophageal reflux disease. Laboratory data includes a white count 4.7, hemoglobin 9.7, hematocrit 28.7, and a platelet count of 185,000. PT 14.4, INR 1.4, PTT 31.4, sodium 134, potassium 4.5, chlorides 103, CO2 25, BUN 44, and creatinine 1.43. Glucose is 104. AST of 78. Troponin 0.105. N-terminal proBNP 3410. Procalcitonin level was 0.29. Urine shows 1+ protein, large amount of blood, moderate positive leukocyte esterase, rater than 182 RBCs, 9 WBCs, and moderate urine bacteria. The patient is currently on Rocephin. Brain CT shows nothing acute. Chest x-ray is consistent with fluid overload Progress note dated November 02, 2024. 74-year-old male seen in consultation yesterday. He is seen again today in room 373. He is getting saline at 20 cc an hour. He is not requiring any supplemental oxygen. He is laying nearly flat in bed, without any shortness of breath or difficulty breathing. He is awake and alert. Not a particularly good historian. Current labs include a white count of 3.9, hemoglobin 9.9, hematocrit 29.8, platelet count 177,000. Sodium 134, potassium 4, chlorides 103, CO2 25, BUN 44, and creatinine 1.44. Glucose is 148. Calcium is 8.1. Progress note dated November 03, 2024. 74-year-old male seen in consultation 2 days ago. Please see the 2 notes above. The patient was admitted, with a diagnosis of shortness of breath, secondary to CHF. Currently he is resting comfortably in bed. He is flat, in no acute distress. He is awake and alert. The patient is getting saline at 20 cc an hour. According to him, he had an uneventful night. Current labs include a white count 3.9, hemoglobin 9.7, hematocrit 28.7, and a normal platelet count. Sodium 133, potassium 3.7, chlorides 101, CO2 30, BUN 42, creatinine 1.47. Glucose 158. Calcium 7.9. Urine is revealing gram-negative bacilli. Is not yet been identified. The patient is on ceftriaxone. On 11/04/2024, the patient is being seen for a follow-up. The patient is resting comfortably in bed. He is a 74-year-old male patient with urinary tract infection with an ESBL producing Klebsiella pneumoniae. The patient was on IV Rocephin. ID was involved in the patient was switched from IV Rocephin to IV Invanz 1 g every 24 hours. Respiratory status is stable. The patient is afebrile. Breathing is nonlabored. Pulse ox 96% on room air oxygen. Chest x- ray at the time of admission was showing some moderate degree of pulm vascular congestion. Repeat chest x-ray on 11/03/2024 showed cardiomegaly with pulm vessel congestion bilateral pleural effusions. Nevertheless, the patient shows no signs of any significant respiratory distress. Hemodynamically stable at this point in time. The blood work shows a white cell count of 5 with a hemoglobin 10.2 and a platelet count of 167 sodium is at 133, BUN 39 with a creatinine of 1.4 and a potassium level is at 3.7.Echocardiogram was done on 11/01/2024 and it showed an ejection fraction of 55 to 60%, normal LV, RVSP of 18 without any significant valvular abnormalities. Objective - Vital Signs Vital signs: Vital Signs Temp 98 F 11/04/24 08:50 Pulse 83 11/04/24 08:50 Resp 17 11/04/24 08:50 BP 99/60 11/04/24 08:50 Pulse Ox 94 L 11/04/24 08:50 FiO2 Intake & Output 11/03/24 11/04/24 11/04/24 18:59 06:59 18:59 Intake Total 720 Output Total 800 900 Balance -80 -900 Weight 89.7 kg Intake: Oral 720 Output: Urine 800 900 Other: Voiding Method Indwelling Catheter Indwelling Catheter Diaper - Exam No acute distress, oriented 3. Very poor historian. No respiratory distress. Currently on room air. HEENT examination is grossly unremarkable. Mucous membranes are moist. No oral lesions. Neck supple. Full range of motion. No adenopathy thyromegaly or neck vein distention. Cardiovascular examination reveals regular rhythm rate. S1-S2 normal. No S3 or S4. No discernible murmur noted. Lungs reveal scattered crackles. Breath sounds equal. No rhonchi. No wheezes. Abdomen soft bowel sounds are heard. No masses or tenderness. Extremities are intact. No cyanosis or clubbing. Mild lower extremity edema. Skin is without rash or lesion. Neurologic examination is brief but nonfocal. - Labs CBC & Chem 7: 11/04/24 05:44 11/04/24 05:44 Labs: Abnormal Lab Results - Last 24 Hours (Table) 11/02/24 11/02/24 11/03/24 Range/Units 06:45 06:45 06:45 RBC (4.30-5.90) m/uL Hgb (13.0-17.5) gm/dL Hct (39.0-53.0) % MCV (80.0-100.0) fL Sodium (137-145) mmol/L BUN (9-20) mg/dL Creatinine (0.66-1.25) mg/dL POC Glucose (mg/dL) (70-110) mg/dL Calcium (8.4-10.2) mg/dL HDL Cholesterol 24.90 L (40.00-60.00) mg/dL Vitamin B12 953.0 H (200.0-944.0) pg/mL Folate 3.00 L (4.40-31.00) ng/mL 11/03/24 11/03/24 11/04/24 Range/Units 16:47 20:29 05:44 RBC (4.30-5.90) m/uL Hgb (13.0-17.5) gm/dL Hct (39.0-53.0) % MCV (80.0-100.0) fL Sodium 133 L (137-145) mmol/L BUN 39 H (9-20) mg/dL Creatinine 1.46 H (0.66-1.25) mg/dL POC Glucose (mg/dL) 212 H 146 H (70-110) mg/dL Calcium 8.0 L (8.4-10.2) mg/dL HDL Cholesterol (40.00-60.00) mg/dL Vitamin B12 (200.0-944.0) pg/mL Folate (4.40-31.00) ng/mL 11/04/24 Range/Units 05:44 RBC 2.98 L (4.30-5.90) m/uL Hgb 10.2 L (13.0-17.5) gm/dL Hct 30.5 L (39.0-53.0) % MCV 102.2 H (80.0-100.0) fL Sodium (137-145) mmol/L BUN (9-20) mg/dL Creatinine (0.66-1.25) mg/dL POC Glucose (mg/dL) (70-110) mg/dL Calcium (8.4-10.2) mg/dL HDL Cholesterol (40.00-60.00) mg/dL Vitamin B12 (200.0-944.0) pg/mL Folate (4.40-31.00) ng/mL Microbiology - Last 24 Hours (Table) 11/01/24 06:30 Urine Culture - Final Urine,Catheterized Klebsiella pneumo ESBL MDRO Assessment and Plan Plan: Acute UTI with gram-negative bacteria. The patient has an ESBL producing Klebsiella pneumoniae and he was started on IV Invanz Mild pulm vessel congestion with a echocardiogram showing preserved LV function without any valvular abnormalities. No significant shortness of breath and the patient is currently on room air oxygen Altered mentation, acute, secondary to underlying UTI, CAT scan of the brain is negative and this is consistent with metabolic encephalopathy History of hypertension. History of diabetes mellitus. History of gastroesophageal reflux disease. History of prostate cancer. Plan: Patient currently on room air oxygen Echocardiogram was noted IV antibiotics have been adjusted and the patient is currently on IV Invanz Procalcitonin level was 0.29 Patient is on room air oxygen without any respiratory difficulties We will continue to follow ID is on the case
[2024-11-04] MEDS: ERTAPENEM 1 GM in SODIUM CHLORIDE 0.9% 50 ML IVPB SCH (15:01)
[2024-11-04 16:49] LABS: Glucose,Whole Blood 160 mg/dL (70-110)
[2024-11-04 20:09] LABS: Glucose,Whole Blood 151 mg/dL (70-110)
--- NOTE | 2024-11-05 05:18 | P.PN ---
Subjective Progress Note Date: 11/04/24 This is a pleasant 74-year-old male who came from [facility] with concerns of acute confusion with multiple comorbidities with concerns of urinary tract infection along with acute CHF exacerbation. Patient being followed by infectious disease maintained on antibiotics and urine culture finalized as ESBL . Showing clinical improvement and will receive a midline and plan for 1 week of Invanz on discharge. Midline order was placed although Refining Supervisor short staff and will be following up if they can place the midline today. Discussed with case management and will plan for discharge in 24 hours to [facility] Review of systems: Constitutional: No reports of fatigue, fever, or chills Cardiovascular: No reports of chest pain or palpitations Respiratory: No reports of shortness of breath or cough GI: No reports of nausea, no reports of vomiting, no diarrhea : No reports of dysuria, chronic indwelling Nunn catheter Neurovascular: reports of generalized weakness All medications have been reviewed PHYSICAL EXAMINATION: GENERAL: The patient is alert and oriented x3, Well developed, well nourished. Elderly appearing HEENT: Pupils are round and equally reacting to light. EOMI. no scleral icterus. No conjunctival pallor. Normocephalic, atraumatic. No pharyngeal erythema. No thyromegaly. CARDIOVASCULAR: S1 and S2 muffled PULMONARY: diminished breath sounds bilaterally with no wheezing or rhonchi noted. ABDOMEN: soft. Nontender on exam. non-distended, normoactive bowel sounds. No palpable organomegaly. MUSCULOSKELETAL: No joint swelling or deformity. EXTREMITIES: No cyanosis, clubbing, or pedal edema. NEUROLOGICAL: Gross neurological examination did not reveal any focal deficits. Diffuse weakness SKIN: No rashes. Assessment: Congestive heart failure acute exacerbation, EF 55 to 60% with acute on chronic diastolic dysfunction Relative hypotension, continue holding lisinopril Elevated troponin, ruled out NSTEMI per cardiology Change in mental status, acute metabolic encephalopathy likely secondary to urinary tract infection, improved Acute urinary tract infection with ESBL, present on admission secondary to chronic indwelling Nunn catheter if Diabetes mellitus, type II Gait dysfunction Prostate disorder GI prophylaxis DVT prophylaxis Full code Plan: Recommend to continue with current medications and management with infectious disease following. Urine culture finalized with ESBL and will receive a dose of Invanz and plan for a midline with 1 week of Invanz on discharge Case management following and patient will return to [facility] where he resides Midline order placed although no Refining Supervisor available until possibly later this afternoon or tomorrow. Will monitor overnight and await midline placement for discharge planning in 24 hours Due to multiple complex medical issues, overall prognosis is guarded The impression and plan of care has been dictated by Jina Dasilva, nurse practitioner as directed. Dr. Jose MD I have performed a history and examination and MDM of this patient, discussed the same with the dictator, and agree with the dictator's assessment and plan as written ,documented as a scribe. Based on total visit time, I have performed more than 50% of the visit. Any additional findings or plans will be noted. Objective - Vital Signs Vital signs: Vital Signs Temp 98 F 11/04/24 08:50 Pulse 83 11/04/24 08:50 Resp 17 11/04/24 08:50 BP 99/60 11/04/24 08:50 Pulse Ox 94 L 11/04/24 08:50 FiO2 Intake & Output 11/03/24 11/04/24 11/04/24 18:59 06:59 18:59 Intake Total 720 Output Total 800 900 Balance -80 -900 Weight 89.7 kg 89.7 kg Intake: Oral 720 Output: Urine 800 900 Other: Voiding Method Indwelling Catheter Indwelling Catheter Diaper - Labs CBC & Chem 7: 11/04/24 05:44 11/04/24 05:44 Labs: Abnormal Lab Results - Last 24 Hours (Table) 11/02/24 11/02/24 11/03/24 Range/Units 06:45 06:45 06:45 RBC (4.30-5.90) m/uL Hgb (13.0-17.5) gm/dL Hct (39.0-53.0) % MCV (80.0-100.0) fL Sodium (137-145) mmol/L BUN (9-20) mg/dL Creatinine (0.66-1.25) mg/dL POC Glucose (mg/dL) (70-110) mg/dL Calcium (8.4-10.2) mg/dL HDL Cholesterol 24.90 L (40.00-60.00) mg/dL Vitamin B12 953.0 H (200.0-944.0) pg/mL Folate 3.00 L (4.40-31.00) ng/mL 11/03/24 11/03/24 11/04/24 Range/Units 16:47 20:29 05:44 RBC (4.30-5.90) m/uL Hgb (13.0-17.5) gm/dL Hct (39.0-53.0) % MCV (80.0-100.0) fL Sodium 133 L (137-145) mmol/L BUN 39 H (9-20) mg/dL Creatinine 1.46 H (0.66-1.25) mg/dL POC Glucose (mg/dL) 212 H 146 H (70-110) mg/dL Calcium 8.0 L (8.4-10.2) mg/dL HDL Cholesterol (40.00-60.00) mg/dL Vitamin B12 (200.0-944.0) pg/mL Folate (4.40-31.00) ng/mL 11/04/24 11/04/24 Range/Units 05:44 11:54 RBC 2.98 L (4.30-5.90) m/uL Hgb 10.2 L (13.0-17.5) gm/dL Hct 30.5 L (39.0-53.0) % MCV 102.2 H (80.0-100.0) fL Sodium (137-145) mmol/L BUN (9-20) mg/dL Creatinine (0.66-1.25) mg/dL POC Glucose (mg/dL) 142 H (70-110) mg/dL Calcium (8.4-10.2) mg/dL HDL Cholesterol (40.00-60.00) mg/dL Vitamin B12 (200.0-944.0) pg/mL Folate (4.40-31.00) ng/mL Microbiology - Last 24 Hours (Table) 11/01/24 06:30 Urine Culture - Final Urine,Catheterized Klebsiella pneumo ESBL MDRO
[2024-11-05 05:43] LABS: Glucose,Whole Blood 102 mg/dL (70-110)
[2024-11-05 09:03] LABS: African American GFR (CKD) 58 (>60 ml/min/1.73 sqM); Anion Gap 5 mmol/L; Blood Urea Nitrogen 39 mg/dL (9-20); Calcium 7.7 mg/dL (8.4-10.2); Carbon Dioxide 31 mmol/L (22-30); Chloride 99 mmol/L (98-107); Glucose 84 mg/dL (74-99); Non-African American GFR(CKD) 51 (>60 ml/min/1.73 sqM); Potassium 3.9 mmol/L (3.5-5.1); Sodium 135 mmol/L (137-145)
[2024-11-05 09:33] VITALS: TEMP 98.3
--- NOTE | 2024-11-05 10:20 | P.DS ---
Providers Date of admission: 11/01/24 04:02 Expected date of discharge: 11/04/24 Attending physician: Jessica Garcia Consults: 11/01/24 04:23 Consult Physician Urgent Consulting Provider: [facility] Consult Reason/Comments: aechf Do you want consulting provider notified?: Yes 11/01/24 06:03 Consult Physician Routine Consulting Provider: Gabriel Zarco Consult Reason/Comments: sob, chf Do you want consulting provider notified?: Yes Consult Physician Urgent Consulting Provider: Jessy Brar Consult Reason/Comments: uti Do you want consulting provider notified?: Yes 11/01/24 13:45 Consult Physician Routine Consulting Provider: Reilly Guzman Consult Reason/Comments: tia?? Do you want consulting provider notified?: Yes Primary care physician: Damian Griffith Hospital Course: Final diagnosis Congestive heart failure acute exacerbation, EF 55 to 60% with acute on chronic diastolic dysfunction Relative hypotension, continue holding lisinopril Elevated troponin, ruled out NSTEMI per cardiology Change in mental status, acute metabolic encephalopathy likely secondary to urinary tract infection, improved Acute urinary tract infection with ESBL, present on admission secondary to chronic indwelling Nunn catheter Diabetes mellitus, type II Gait dysfunction Prostate disorder GI prophylaxis DVT prophylaxis Full code Discharge disposition Patient is being discharged in a stable condition with guarded prognosis to [facility]. Patient will follow-up with Dr. Griffith in the outpatient setting upon discharge. Patient is to continue with IV Invanz for 5 days with a midline. Total time taken is greater than 35 minutes. Hospital course This is a 74-year-old male who was recently admitted with acute altered mentation with concerns of acute urinary tract infection. Patient chronically has an indwelling Nunn catheter for retention and urine culture was noted to be ESBL. Patient being followed by infectious disease showing clinical improvement on ceftriaxone although given the positive culture patient will receive a midline and transition to IV Invanz for 5-day course. Patient is to return to [facility] and recommend outpatient follow-up with primary care provider. Patient mentation is improved and recommend outpatient labs in the next few days along with continuing to hold lisinopril as patient's blood pressures have been normotensive and on the lower side. Please refer to other consultation notes for further HPI. Currently no reports of chest pain, shortness of breath, or palpitations. Patient is afebrile. No reports of nausea or vomiting and patient is tolerating diet. Patient will be going to [place] today. Guarded prognosis and high risk for readmissions given significant comorbidities. Physical exam: Gen: This is a 74-year-old male who is awake, alert and oriented x 2-3, baseline, well-developed, elderly appearing HEENT: Head is atraumatic, normocephalic. Pupils equal, round. Sclerae is anicteric. NECK: Supple. No JVD. No lymphadenopathy. No thyromegaly. LUNGS: Diminished breath sounds bilaterally otherwise diffusely weak clear to auscultation. No wheezes or rhonchi. No intercostal retractions. HEART: Regular rate and rhythm. No murmur. ABDOMEN: Soft. Bowel sounds are present. No masses. No tenderness. EXTREMITIES: No pedal edema. No calf tenderness. NEUROLOGICAL: Patient is awake, alert and oriented x3. Cranial nerves 2 through 12 are grossly intact. Please refer to medication reconciliation sheet for a list of medications. The impression and plan of care has been dictated by Jina Dasilva, Nurse Practitioner as directed. Dr. Jose MD I have performed a history and examination and MDM of this patient, discussed the same with the dictator, and agree with the dictator's assessment and plan as written ,documented as a scribe. Based on total visit time, I have performed more than 50% of the visit. Patient Condition at Discharge: Stable Plan - Discharge Summary Discharge Rx Participant: No New Discharge Prescriptions: New Aspirin 81 mg PO DAILY tab Furosemide [Lasix] 40 mg PO BID@0900,1600 tab Atorvastatin [Lipitor] 40 mg PO HS tab Ertapenem [INVanz] 1 gm IVPB DAILY 5 Days #5 each Continue Tamsulosin [Flomax] 0.4 mg PO DAILY Pantoprazole [Protonix] 40 mg PO DAILY Magnesium Glycinate 100mg 200 mg PO BID Escitalopram [Lexapro] 10 mg PO DAILY Gabapentin 300 mg PO HS metFORMIN HCL 500 mg PO BID traZODone HCL [Desyrel] 50 mg PO HS Acetaminophen [Tylenol] 650 mg PO Q4H PRN MDD 3gm PRN Reason: Pain Or Fever > 100.5 Discontinued Furosemide [Lasix] 20 mg PO BID lisinopriL [Zestril] 10 mg PO DAILY Simvastatin [Zocor] 20 mg PO HS Discharge Medication List Pantoprazole [Protonix] 40 mg PO DAILY 01/15/24 [History] Tamsulosin [Flomax] 0.4 mg PO DAILY 01/15/24 [History] traZODone HCL [Desyrel] 50 mg PO HS 01/15/24 [History] Acetaminophen [Tylenol] 650 mg PO Q4H PRN MDD 3gm 11/01/24 [History] Escitalopram [Lexapro] 10 mg PO DAILY 11/01/24 [History] Gabapentin 300 mg PO HS 11/01/24 [History] Magnesium Glycinate 100mg 200 mg PO BID 11/01/24 [History] metFORMIN HCL 500 mg PO BID 11/01/24 [History] Aspirin 81 mg PO DAILY tab 11/04/24 [Rx] Atorvastatin [Lipitor] 40 mg PO HS tab 11/04/24 [Rx] Furosemide [Lasix] 40 mg PO BID@0900,1600 tab 11/04/24 [Rx] Ertapenem [INVanz] 1 gm IVPB DAILY 5 Days #5 each 11/05/24 [Rx] Follow up Appointment(s)/Referral(s): Avery Torres MD [STAFF PHYSICIAN] - 2 Weeks Damian Griffith MD [Primary Care Provider] - 1-2 days Activity/Diet/Wound Care/Special Instructions: Patient is going to [facility] where he resides Patient has a midline and will continue 5 days of Invanz per ID recommendations Follow-up with primary care provider on discharge Continue holding lisinopril Repeat labs of CBC, CMP, magnesium in 2 to 3 days Discharge Disposition: TRANSFER TO SNF/ECF
[2024-11-05 11:26] LABS: Glucose,Whole Blood 114 mg/dL (70-110)
[2024-11-05] MEDS: FOLIC ACID 1 MG TAB PO SCH (11:33)
[2024-11-05 13:28] VITALS: BP 105/67; PULSE 82; RESP 17
--- NOTE | 2024-11-05 13:41 | P.PN ---
Subjective Progress Note Date: 11/04/24 Principal diagnosis: Reason for follow-up is a UTI Patient is a 74-year-old male with a past medical history significant for prostate cancer diabetes mellitus, presented to the hospital from local care home concerning for mental status changes patient appears to be more fatigued with slurred speech, patient did have a positive UA and with mental status changes concerning for UTI prompting this consultation. On today's evaluation that is 11/04/2024, patient has been afebrile, patient is breathing comfortably and is currently on room air, patient denies having any significant cough or sputum production no chest pain, patient denies nausea vomiting or diarrhea and no abdominal pain. Patient white count is 5.0, creat is 1.46 urine has been finalized with ESBL Klebsiella Objective - Vital Signs Vital signs: Vital Signs Temp 98 F 11/04/24 08:50 Pulse 83 11/04/24 08:50 Resp 17 11/04/24 08:50 BP 99/60 11/04/24 08:50 Pulse Ox 94 L 11/04/24 08:50 FiO2 Intake & Output 11/03/24 11/04/24 11/04/24 18:59 06:59 18:59 Intake Total 720 Output Total 800 900 Balance -80 -900 Weight 89.7 kg 89.7 kg Intake: Oral 720 Output: Urine 800 900 Other: Voiding Method Indwelling Catheter Indwelling Catheter Diaper - Exam GENERAL DESCRIPTION: An elderly male lying in bed in no distress RESPIRATORY SYSTEM: Unlabored breathing , decreased breath sounds at bases HEART: S1 S2 regular rate and rhythm , ABDOMEN: Soft , no tenderness EXTREMITIES: No edema feet - Labs CBC & Chem 7: 11/04/24 05:44 11/05/24 07:17 Labs: Abnormal Lab Results - Last 24 Hours (Table) 11/02/24 11/02/24 11/03/24 Range/Units 06:45 06:45 16:47 RBC (4.30-5.90) m/uL Hgb (13.0-17.5) gm/dL Hct (39.0-53.0) % MCV (80.0-100.0) fL Sodium (137-145) mmol/L BUN (9-20) mg/dL Creatinine (0.66-1.25) mg/dL POC Glucose (mg/dL) 212 H (70-110) mg/dL Calcium (8.4-10.2) mg/dL Vitamin B12 953.0 H (200.0-944.0) pg/mL Folate 3.00 L (4.40-31.00) ng/mL 11/03/24 11/04/24 11/04/24 Range/Units 20:29 05:44 05:44 RBC 2.98 L (4.30-5.90) m/uL Hgb 10.2 L (13.0-17.5) gm/dL Hct 30.5 L (39.0-53.0) % MCV 102.2 H (80.0-100.0) fL Sodium 133 L (137-145) mmol/L BUN 39 H (9-20) mg/dL Creatinine 1.46 H (0.66-1.25) mg/dL POC Glucose (mg/dL) 146 H (70-110) mg/dL Calcium 8.0 L (8.4-10.2) mg/dL Vitamin B12 (200.0-944.0) pg/mL Folate (4.40-31.00) ng/mL 11/04/24 Range/Units 11:54 RBC (4.30-5.90) m/uL Hgb (13.0-17.5) gm/dL Hct (39.0-53.0) % MCV (80.0-100.0) fL Sodium (137-145) mmol/L BUN (9-20) mg/dL Creatinine (0.66-1.25) mg/dL POC Glucose (mg/dL) 142 H (70-110) mg/dL Calcium (8.4-10.2) mg/dL Vitamin B12 (200.0-944.0) pg/mL Folate (4.40-31.00) ng/mL Microbiology - Last 24 Hours (Table) 11/01/24 06:30 Urine Culture - Final Urine,Catheterized Klebsiella pneumo ESBL MDRO Assessment and Plan (1) UTI (urinary tract infection) Status: Acute Code(s): N39.0 - URINARY TRACT INFECTION, SITE NOT SPECIFIED S NOMED Code(s): 85836306 Plan: 1patient presented to hospital with mental status changes generalized weakness decreased appetite difficulty urination did have some suprapubic discomfort positive UA concerning for symptomatic UTI likely from to the gram-negative pathogen 2-patient urine is currently growing ESBL Klebsiella Rocephin discussed with patient started on Invanz discussed with the SALES CONTRACTOR for admitting team Dictation was produced using [employer] dictation software. please excuse any grammatical, word or spelling errors. Time with Patient: Less than 30
--- NOTE | 2024-11-05 13:42 | P.PN ---
Subjective Progress Note Date: 11/05/24 Principal diagnosis: Reason for follow-up is a UTI Patient is a 74-year-old male with a past medical history significant for prostate cancer diabetes mellitus, [facility] concerning for mental status changes patient appears to be more fatigued with slurred speech, patient did have a positive UA and with mental status changes concerning for UTI prompting this consultation. On today's evaluation that is 11/05/2024, Patient is afebrile this morning patient denies having any chest pain shortness of breath or cough, the patient i s currently on room air, patient denies any abdominal pain no diarrhea no nausea no vomiting Patient did have a creatinine of 1.36 no CBC was done today Objective - Vital Signs Vital signs: Vital Signs Temp 98.3 F 11/05/24 08:30 Pulse 82 11/05/24 12:00 Resp 17 11/05/24 12:00 BP 105/67 11/05/24 12:00 Pulse Ox 93 L 11/05/24 12:00 FiO2 Intake & Output 11/04/24 11/05/24 11/05/24 18:59 06:59 18:59 Intake Total 240 Output Total 550 650 Balance -550 -650 240 Weight 89.7 kg 95 kg Intake: Oral 240 Output: Urine 550 650 Other: Voiding Method Diaper Indwelling Catheter Indwelling Catheter - Exam GENERAL DESCRIPTION: An elderly male lying in bed in no distress RESPIRATORY SYSTEM: Unlabored breathing , decreased breath sounds at bases HEART: S1 S2 regular rate and rhythm , ABDOMEN: Soft , no tenderness EXTREMITIES: No edema feet - Labs CBC & Chem 7: 11/04/24 05:44 11/05/24 07:17 Labs: Abnormal Lab Results - Last 24 Hours (Table) 11/04/24 11/04/24 11/04/24 Range/Units 14:08 16:46 20:07 Sodium (137-145) mmol/L Carbon Dioxide (22-30) mmol/L BUN (9-20) mg/dL Creatinine (0.66-1.25) mg/dL POC Glucose (mg/dL) 160 H 151 H (70-110) mg/dL Calcium (8.4-10.2) mg/dL Urine Blood Moderate H (Negative) Urine RBC 10 H (0-5) /hpf Urine Bacteria Rare H (None) /hpf Urine Mucus Rare H (None) /hpf 11/05/24 11/05/24 Range/Units 07:17 11:25 Sodium 135 L (137-145) mmol/L Carbon Dioxide 31 H (22-30) mmol/L BUN 39 H (9-20) mg/dL Creatinine 1.36 H (0.66-1.25) mg/dL POC Glucose (mg/dL) 114 H (70-110) mg/dL Calcium 7.7 L (8.4-10.2) mg/dL Urine Blood (Negative) Urine RBC (0-5) /hpf Urine Bacteria (None) /hpf Urine Mucus (None) /hpf Assessment and Plan (1) UTI (urinary tract infection) Status: Acute Code(s): N39.0 - URINARY TRACT INFECTION, SITE NOT SPECIFIED SNOMED Code(s): 64247066 Plan: 1patient presented to hospital with mental status changes generalized weakness decreased appetite difficulty urination did have some suprapubic discomfort positive UA concerning for symptomatic UTI likely from to the gram-negative pathogen 2-patient urine is currently growing ESBL Klebsiella patient did get a midline plan is for 5-day course of Invanz on discharge, that was discussed with OFFICE SUPPORT for admitting team yesterday Dictation was produced using [employer] dictation software. please excuse any grammatical, word or spelling errors. Time with Patient: Less than 30
--- NOTE | 2024-11-05 14:40 | P.PN ---
Subjective Progress Note Date: 11/05/24 Pulmonary consult dated November 01, 2024. 74-year-old male who is seen today in room 373. We were consulted for shortness of breath. The patient presented to the emergency department, on November 01, at 1:00 in the morning, with neurologic complaints. He came in from one of the local nursing homes. The patient himself is not a particularly good historian and most of the history is obtained from the medical record. In addition to mental status changes, the patient apparently complained of some shortness of breath. He apparently was evaluated for possible CVA as well. Currently, the patient's stable from the pulmonary standpoint. His room air saturations ranged from 95% up to 97%. He appears in no acute distress. History includes prostate cancer, diabetes mellitus, hypertension, and gastroesophageal reflux disease. Laboratory data includes a white count 4.7, hemoglobin 9.7, hematocrit 28.7, and a platelet count of 185,000. PT 14.4, INR 1.4, PTT 31.4, sodium 134, potassium 4.5, chlorides 103, CO2 25, BUN 44, and creatinine 1.43. Glucose is 104. AST of 78. Troponin 0.105. N-terminal proBNP 3410. Procalcitonin level was 0.29. Urine shows 1+ protein, large amount of blood, moderate positive leukocyte esterase, rater than 182 RBCs, 9 WBCs, and moderate urine bacteria. The patient is currently on Rocephin. Brain CT shows nothing acute. Chest x-ray is consistent with fluid overload Progress note dated November 02, 2024. 74-year-old male seen in consultation yesterday. He is seen again today in room 373. He is getting saline at 20 cc an hour. He is not requiring any supplemental oxygen. He is laying nearly flat in bed, without any shortness of breath or difficulty breathing. He is awake and alert. Not a particularly good historian. Current labs include a white count of 3.9, hemoglobin 9.9, hematocrit 29.8, platelet count 177,000. Sodium 134, potassium 4, chlorides 103, CO2 25, BUN 44, and creatinine 1.44. Glucose is 148. Calcium is 8.1. Progress note dated November 03, 2024. 74-year-old male seen in consultation 2 days ago. Please see the 2 notes above. The patient was admitted, with a diagnosis of shortness of breath, secondary to CHF. Currently he is resting comfortably in bed. He is flat, in no acute distress. He is awake and alert. The patient is getting saline at 20 cc an hour. According to him, he had an uneventful night. Current labs include a white count 3.9, hemoglobin 9.7, hematocrit 28.7, and a normal platelet count. Sodium 133, potassium 3.7, chlorides 101, CO2 30, BUN 42, creatinine 1.47. Glucose 158. Calcium 7.9. Urine is revealing gram-negative bacilli. Is not yet been identified. The patient is on ceftriaxone. On 11/04/2024, the patient is being seen for a follow-up. The patient is resting comfortably in bed. He is a 74-year-old male patient with urinary tract infection with an ESBL producing Klebsiella pneumoniae. The patient was on IV Rocephin. ID was involved in the patient was switched from IV Rocephin to IV Invanz 1 g every 24 hours. Respiratory status is stable. The patient is afebrile. Breathing is nonlabored. Pulse ox 96% on room air oxygen. Chest x- ray at the time of admission was showing some moderate degree of pulm vascular congestion. Repeat chest x-ray on 11/03/2024 showed cardiomegaly with pulm vessel congestion bilateral pleural effusions. Nevertheless, the patient shows no signs of any significant respiratory distress. Hemodynamically stable at this point in time. The blood work shows a white cell count of 5 with a hemoglobin 10.2 and a platelet count of 167 sodium is at 133, BUN 39 with a creatinine of 1.4 and a potassium level is at 3.7.Echocardiogram was done on 11/01/2024 and it showed an ejection fraction of 55 to 60%, normal LV, RVSP of 18 without any significant valvular abnormalities. 11/05/2024, the patient is stable. The patient remains on room air oxygen. No significant events overnight. The patient remains on IV Invanz. The patient had an E. coli with a ESBL producing Klebsiella pneumonia and the patient is being discharged to complete IV Invanz on outpatient basis. The patient is going to [facility]. Sodium levels at 135, BUN 39 with a creatinine of 1.36. Objective - Vital Signs Vital signs: Vital Signs Temp 98.3 F 11/05/24 08:30 Pulse 87 11/05/24 08:30 Resp 18 11/05/24 08:30 BP 107/67 11/05/24 08:30 Pulse Ox 92 L 11/05/24 08:30 FiO2 Intake & Output 11/04/24 11/05/24 11/05/24 18:59 06:59 18:59 Intake Total 240 Output Total 550 650 Balance -550 -650 240 Weight 89.7 kg 95 kg Intake: Oral 240 Output: Urine 550 650 Other: Voiding Method Diaper Indwelling Catheter Indwelling Catheter - Exam No acute distress, oriented 3. Very poor historian. No respiratory distress. Currently on room air. HEENT examination is grossly unremarkable. Mucous membranes are moist. No oral lesions. Neck supple. Full range of motion. No adenopathy thyromegaly or neck vein distention. Cardiovascular examination reveals regular rhythm rate. S1-S2 normal. No S3 or S4. No discernible murmur noted. Lungs reveal scattered crackles. Breath sounds equal. No rhonchi. No wheezes. Abdomen soft bowel sounds are heard. No masses or tenderness. Extremities are intact. No cyanosis or clubbing. Mild lower extremity edema. Skin is without rash or lesion. Neurologic examination is brief but nonfocal. - Labs CBC & Chem 7: 11/04/24 05:44 11/05/24 07:17 Labs: Abnormal Lab Results - Last 24 Hours (Table) 11/04/24 11/04/24 11/04/24 Range/Units 11:54 14:08 16:46 Sodium (137-145) mmol/L Carbon Dioxide (22-30) mmol/L BUN (9-20) mg/dL Creatinine (0.66-1.25) mg/dL POC Glucose (mg/dL) 142 H 160 H (70-110) mg/dL Calcium (8.4-10.2) mg/dL Urine Blood Moderate H (Negative) Urine RBC 10 H (0-5) /hpf Urine Bacteria Rare H (None) /hpf Urine Mucus Rare H (None) /hpf 11/04/24 11/05/24 Range/Units 20:07 07:17 Sodium 135 L (137-145) mmol/L Carbon Dioxide 31 H (22-30) mmol/L BUN 39 H (9-20) mg/dL Creatinine 1.36 H (0.66-1.25) mg/dL POC Glucose (mg/dL) 151 H (70-110) mg/dL Calcium 7.7 L (8.4-10.2) mg/dL Urine Blood (Negative) Urine RBC (0-5) /hpf Urine Bacteria (None) /hpf Urine Mucus (None) /hpf Assessment and Plan Plan: Acute UTI with gram-negative bacteria. The patient has an ESBL producing Klebsiella pneumoniae and he was started on IV Invanz Mild pulm vessel congestion with a echocardiogram showing preserved LV function without any valvular abnormalities. No significant shortness of breath and the patient is currently on room air oxygen Altered mentation, acute, secondary to underlying UTI, CAT scan of the brain is negative and this is consistent with metabolic encephalopathy History of hypertension. History of diabetes mellitus. History of gastroesophageal reflux disease. History of prostate cancer. Plan: Patient currently on room air oxygen Echocardiogram was noted IV antibiotics have been adjusted and the patient is currently on IV Invanz, the patient will complete IV Invanz for an additional 5 days at the [facility]. Procalcitonin level was 0.29 Patient is on room air oxygen without any respiratory difficulties We will continue to follow ID is on the case Possible discharge today
== END 2024-11-05 13:30 | DRG 698 ==
LOC: EC 01:07 → 3SCARD 04:02
PROVIDERS: ADMIT Hospitalist; ATTEND Hospitalist
PROC: 05HA33Z Insertion of Infusion Device into Left Brachial Vein, Percutaneous Approach (ICD-10-PCS; principal; 2024-11-04 18:45)
DX: T83.511A Infection and inflammatory reaction due to indwelling urethral catheter, initial encounter (principal); G93.41 Metabolic encephalopathy; I50.33 Acute on chronic diastolic (congestive) heart failure; I21.A1 Myocardial infarction type 2; N17.9 Acute kidney failure, unspecified; I11.0 Hypertensive heart disease with heart failure; E11.42 Type 2 diabetes mellitus with diabetic polyneuropathy; Z16.12 Extended spectrum beta lactamase (ESBL) resistance; I95.9 Hypotension, unspecified; R26.9 Unspecified abnormalities of gait and mobility; N42.9 Disorder of prostate, unspecified; E78.5 Hyperlipidemia, unspecified; K21.9 Gastro-esophageal reflux disease without esophagitis; I48.91 Unspecified atrial fibrillation; I44.0 Atrioventricular block, first degree; Z85.46 Personal history of malignant neoplasm of prostate; Z79.84 Long term (current) use of oral hypoglycemic drugs; Z87.891 Personal history of nicotine dependence
CPT/HCPCS: 36410; 36415; 70450; 71045; 76937; 80048; 80053; 80061; 81001; 82607; 82746; 83036; 83605; 83735; 83880; 84145; 84443; 84484; 85025; 85610; 85730; 87077; 87086; 87186; 93005; 93306; 93880; 96374; 99285

== ENCOUNTER 2025-01-07 08:35 | Day surgery (SDC) | payer MEDICARE, BC ==
[2025-01-07 08:54] VITALS: RESP 12; TEMP 97.7
[2025-01-07 09:21] LABS: Glucose,Whole Blood 134 mg/dL (70-110)
[2025-01-07 09:30] LABS: Mean Platelet Volume 7.6; Platelet Count 306 k/uL (150-450)
[2025-01-07 09:41] LABS: INR 1.3 (<1.2); Prothrombin Time 13.5 sec (10.0-12.5)
[2025-01-07 09:43] LABS: African American GFR (CKD) 56 (>60 ml/min/1.73 sqM); Glucose 130 mg/dL (74-99); Non-African American GFR(CKD) 49 (>60 ml/min/1.73 sqM)
[2025-01-07] MEDS: ALBUMIN HUMAN 25% 50 ML in EMPTY BAG 1 BAG IVPB SCH (10:17)
[2025-01-07 11:18] VITALS: BP 102/65; PULSE 90
--- NOTE | 2025-01-08 09:51 | US ---
EXAMINATION TYPE: US paracentesis abd w/image DATE OF EXAM: 01/07/2025 CLINICAL HISTORY: Ascites The procedure was discussed with the patient. The risks, complications, benefits, and alternatives we re discussed and any questions were answered. Informed consent was obtained. The patient was placed s upine on the ultrasound table and prepped and draped in the usual sterile fashion. All elements of maximal barrier technique were utilized. Under ultrasound guidance, access into the left lower quadrant was obtained, via the paracentesis catheter system and direct ultrasound guidance . Approximately 8.6 liters of straw-colored fluid was removed. The patient was stable throughout the pr ocedure and remained stable upon discharge from Department of Radiology. IMPRESSION: Successful therapeutic paracentesis under ultrasound guidance. [facility], , 01/08/2025 9:49 AM
== END 2025-01-07 11:30 | disposition home or self-care (01) ==
LOC: RADPROMAIN 08:35
PROVIDERS: ATTEND Radiology Diagnostic Radiology
DX: R18.8 Other ascites (principal)
CPT/HCPCS: 82565; 82947; 85049; 85610; 36415; 49083; P9047